=== PATIENT | male | born 1940 | race Caucasian/White ===

== ENCOUNTER → 2017-04-19 | Outpatient (CLI) | payer OTHER ==
--- NOTE | 2017-04-19 12:22 | DIAGNOSTIC IMAGING REPORT ---
RETROPERITONEAL COMPLETE CLINICAL HISTORY: 76 years-old Male presenting with RECURRENT UTI'S. TECHNIQUE: Real-time grayscale and limited color Doppler ultrasound imaging of the kidneys and bladder was performed. COMPARISON: 02/03/2015. FINDINGS: Right kidney: Normal echogenicity. Right kidney measures 12 cm. No hydronephrosis. No convincing evidence of calculus or mass. Normal perfusion. Left kidney: Normal echogenicity. Left kidney measures 11.7 cm. No hydronephrosis. 1.3 x 0.6 x 1.1 cm simple appearing cyst again noted. Dependent hyperechogenicity could suggest thin mural calcification or layering milk of calcium Normal perfusion. Bladder: Mildly thickened bladder wall, which is somewhat irregular. Bilateral ureteral jets present. Other: Hyperechogenicity of the liver suggest steatosis. IMPRESSION: 1. No obstruction. 2. Simple or minimally complex small left renal cyst. 3. Mildly thickened bladder wall, which is somewhat irregular. This could represent changes secondary to acute or chronic cystitis or represent chronic outlet obstruction. Correlate with urinalysis. 4. Possible hepatic steatosis. Electronically signed by: Rudi Vega M.D. 04/19/2017 12:20 PM Dictated Date/Time: 04/19/2017 12:18 PM
== END | disposition home or self-care (01) ==
LOC: C.ULTR 11:42
PROVIDERS: ATTEND Urology
DX: N39.0 Urinary tract infection, site not specified (principal); N28.1 Cyst of kidney, acquired

== ENCOUNTER → 2017-12-07 | Outpatient (CLI) | payer OTHER | END | disposition home or self-care (01) | LOC: C.LABSPEC 17:04 | PROVIDERS: ATTEND Urology | DX: R33.9 Retention of urine, unspecified (principal); R31.0 Gross hematuria ==

== ENCOUNTER 2019-11-20 05:58 | Inpatient (IN) ==
--- NOTE | 2019-11-05 16:43 | PAT Medication Instructions ---
Medication Instructions Date of Service November 05, 2019 Home Medications cetirizine 10 mg PO QPM dulaglutide [Trulicity] 1.5 mg SUBCUT WK glipizide 10 mg PO BID glucosamine sulfate 2KCl [Glucosamine Relief] 2,000 mg PO QPM lisinopril-hydrochlorothiazide 1 tab PO QAM metformin 1,000 mg PO BID [id number] [Juan C Multivitamin For Men] 1 tab PO QPM nitrofurantoin macrocrystal 100 mg PO QPM omega-3 fatty acids 500 mg PO QPM omeprazole 20 mg PO QPM simvastatin 40 mg PO PM Continue as directed dulaglutide [Trulicity] 1.5 mg SUBCUT WK STOP taking 2 weeks before surgery omega-3 fatty acids 500 mg PO QPM [id number] [Juan C Multivitamin For Men] 1 tab PO QPM glucosamine sulfate 2KCl [Glucosamine Relief] 2,000 mg PO QPM DO NOT take the morning of surgery metformin 1,000 mg PO BID lisinopril-hydrochlorothiazide 1 tab PO QAM glipizide 10 mg PO BID Take evening before surgery omeprazole 20 mg PO QPM simvastatin 40 mg PO PM nitrofurantoin macrocrystal 100 mg PO QPM metformin 1,000 mg PO BID glipizide 10 mg PO BID cetirizine 10 mg PO QPM OTHERWISE NOTHING TO EAT OR DRINK AFTER MIDNIGHT Other Notes If you have any questions please call us at [phone] or [phone] or [phone] or [phone]
--- NOTE | 2019-11-06 11:17 | Anesthesiology Consultation ---
Date of Service November 06, 2019 Assessment & Plan (1) Encounter for pre-operative examination: Chart Review Chart Review: Pending: Refer to Additional Notes / Consult section (PCP clearance and response re: murmur) and Patient seen in Pre Admission Testing Note written to PCP to address at PCP clearance re: heart murmur and carotid bruits vs murmur radiation and if recent ECHO/carotids done or if testing can be updated prior to surgery. Teaching & Discussion Pre-Anesthesia Teaching/Discussion Notes: Instructed NPO after midnight before surgery,except medications with 15 cc of water. Medication instructions provided according to the PAT guidelines. History Surgery Operation Date: 11/20/19 07:45 Proposed Procedures p L3-L5 Decompression Fusion, Spinal Cord Monitoring - Pedro Guerra, Height/Weight Height: 5 ft 6 in Weight: 98.1 kg Allergies Allergy/AdvReac Type Severity Reaction Status Date / Time ofloxacin [From Floxin] Allergy Unknown TROUBLE Verified 10/31/19 11:57 BREATHING pregabalin [From Lyrica] Allergy Unknown MUSCLE Verified 10/31/19 11:57 WEAKNESS Medications Home Medications Medication Instructions Recorded Confirmed Last Taken cetirizine 10 mg PO QPM 10/31/19 10/31/19 Unknown dulaglutide [Trulicity] 1.5 mg SUBCUT WK 10/31/19 10/31/19 Unknown glipizide 10 mg PO BID 10/31/19 10/31/19 Unknown glucosamine sulfate 2KCl 2,000 mg PO QPM 10/31/19 10/31/19 Unknown [Glucosamine Relief] lisinopril-hydrochlorothiazide 1 tab PO QAM 10/31/19 10/31/19 Unknown metformin 1,000 mg PO BID 10/31/19 10/31/19 Unknown [id number] 1 tab PO QPM 10/31/19 10/31/19 Unknown [Juan C Multivitamin For Men] nitrofurantoin macrocrystal 100 mg PO QPM 10/31/19 10/31/19 Unknown omega-3 fatty acids 500 mg PO QPM 10/31/19 10/31/19 Unknown omeprazole 20 mg PO QPM 10/31/19 10/31/19 Unknown simvastatin 40 mg PO PM 10/31/19 10/31/19 Unknown Past Medical History Medical History (Updated 11/06/19 @ 11:39 by Aubrie Baum PA-C) Cardiac murmur Chronic Chronic sinus complaints Diabetes mellitus, type 2 Well controlled and stable GERD (gastroesophageal reflux disease) Well controlled and stable Hearing deficit Hx: UTI (urinary tract infection) Recurrent UTI history- follows with urology- on prophylactic abx - no recent issues Hyperlipidemia Hypertension Neuropathy of both feet Prostate cancer Under observation Self-catheterizes urinary bladder D/T URINARY RETENTION Sleep apnea on CPAP q HS Exercise / Class Metabolic Activity II 4-5 Yardwork/Stairs/Walk up hill (one flight of stairs- no chest pain or SOB ) Past Family History Family History (Updated 10/31/19 @ 12:11 by Marina Wolf, CHIRAG) Mother Family history of diabetes mellitus Father Family history of diabetes mellitus Sister Family history of diabetes mellitus Past Surgical History Surgical History (Updated 10/31/19 @ 12:16 by Marina Wolf, CHIRAG) History of carpal tunnel release of both wrists History of prostate surgery Hx of colonoscopy Hx of hernia repair WITH HYDROCELECTOMY Past Anesthesia History No Hx of Anesthesia Complications and No Family Hx of Anesthesia Complications History of PONV No Hx of PONV and Hx of Motion Sickness Social History Smoking Status: Never smoker Do You Dip or Chew Tobacco: No Hx Alcohol Use: No Hx Substance Use: No substance use type: does not use Review of Systems Patient denies chest pain, shortness of breath, dyspnea on exertion, cough, wheezing, palpitations. No hx of seizures, stroke, SD. No hx of blood clots or blood transfusions Physical Exam Vital Signs VITALS BP 128/72 P 88 TEMP 98.5 SP02 96% RESP 16 Constitutional no acute distress ENMT Mouth: no TMJ clicking Thyromental Distance: > or= 3.5 Finger Breadths (3.5) Mallampati Class: II Bottom left molar missing Neck + short neck, + thick neck and + limited neck extension (moderately ) Respiratory normal respiratory effort; no respiratory distress Auscultation: lungs clear to auscultation bilaterally; no wheezes Cardiovascular Rate/Rhythm: regular rate and regular rhythm Heart Sounds: + murmur (III/ systolic murmur ) Vessels: + carotid bruit (bilateral bruit vs. cardiac murmur radiation ) Extremities: no edema Musculoskeletal Spine: + pain with cervical ROM (mild ) Neurologic moves all extremities Psychiatric Orientation: alert Testing Laboratory Results 11/06/19 11:29 11/06/19 11: PT 10.7 Seconds (9.0-12.0) 11/06/19 11: INR 1.0 (0.9-1.1) 11/06/19 11: APTT 25.9 Seconds (21.0-31.0) 11/06/19 11:29 Urine Color Dark Yellow 11/06/19 Unknown Urine Appearance Clear (Clear) 11/06/19 Unknown Urine pH 5.0 (4.5-7.5) 11/06/19 Unknown Ur Specific Hyden 1.020 (1.000-1.030) 11/06/19 Unknown Urine Protein Negative (Negative) 11/06/19 Unknown Urine Glucose (UA) Negative (Negative) 11/06/19 Unknown Urine Ketones Negative (Negative) 11/06/19 Unknown Urine Nitrite Negative (Negative) 11/06/19 Unknown Ur Leukocyte Esterase Negative (Negative) 11/06/19 Unknown Blood Type A Positive 11/06/19 11: Antibody Screen NEGATIVE 11/06/19 11:29 Electrocardiogram Date: 11/06/19 Findings: + NSR @ (63) Chest X-Ray Date: 11/06/19 Findings: + NAD and + cardiomegaly Atherosclerotic calcification of the thoracic aorta. . Scarring/atelectasis is noted at the lung bases
--- NOTE | 2019-11-06 12:03 | XRay Report ---
TWO VIEW CHEST CLINICAL HISTORY: Preoperative examination. FINDINGS: PA and lateral chest radiographs are obtained. No prior studies are available for compariso n at the time of dictation. The heart is enlarged noting atherosclerotic calcification of the thorac ic aorta. The pulmonary vasculature is noncongested. Scarring/atelectasis is noted at the lung bases. No airspace consolidation or pleural effusion is identified. There is no pneumothorax. The skeletal structures are osteopenic. The bony thorax appears intact. IMPRESSION: Cardiomegaly with no active disease in the chest. ACT 112: Negative or not required by law. Electronically signed by: Jerome Munoz M.D. 11/06/2019 12:02 PM
[2019-11-06 12:05] LABS: Basophils # (auto) 0.02 K/uL (0-0.2); Basophils % (auto) 0.3 %; Eosinophils # (auto) 0.12 K/uL (0-0.5); Eosinophils % (auto) 1.9 %; Hematocrit (blood only) 40.3 % (42-52); Hemoglobin 13.6 g/dL (14.0-18.0); Immature Granulocytes # (auto) 0.02 K/uL (0.00-0.02); Immature Granulocytes % (auto) 0.3 %; Lymphocytes # (auto) 2.07 K/uL (1.2-3.4); Lymphocytes % (auto) 32.8 %; Mean Corpuscular Hgb Conc 33.7 g/dL (32-36); Mean Corpuscular Volume 83.1 fL (80-100); Mean Platelet Volume 10.3 fL (7.4-10.4); Monocytes # (auto) 0.44 K/uL (0.11-0.59); Neutrophils # (auto) 3.65 K/uL (1.4-6.5); Neutrophils % (auto) 57.7 %; Platelet Count 183 K/uL (130-400); RDW Coefficient of Variation 14.4 % (11.5-14.5); RDW Standard Deviation 43.8 fL (36.4-46.3); Red Blood Count 4.85 M/uL (4.7-6.1); White Blood Count 6.32 K/uL (4.8-10.8)
[2019-11-06 12:10] LABS: Appearance Urine Clear (Clear); Bilirubin Urine Negative (Negative); Blood Urine Negative (Negative); Color Urine Dark Yellow; Glucose Urine UA Negative (Negative); Ketones Urine Negative (Negative); Leukocyte Esterase Urine Negative (Negative); Nitrite Urine Negative (Negative); Protein Urine Negative (Negative); Urobilinogen Urine Negative (Negative)
[2019-11-06 12:19] LABS: Partial Thromboplastin Ratio 0.9; Partial Thromboplastin Time 25.9 Seconds (21.0-31.0); Prothrombin Time 10.7 Seconds (9.0-12.0)
[2019-11-06 14:03] LABS: BUN Creatinine Ratio 17.6 (10-20); Calcium 9.9 mg/dl (8.5-10.1); Creatinine Clr Calc Pharmacy 53.4 ml/min; Est GFR (African American) 64.3; Est GFR (Non-African American) 55.5; Potassium 3.9 mmol/L (3.5-5.1)
--- NOTE | 2019-11-06 15:30 | Electrocardiogram Report ---
Test Reason : Blood Pressure : / mmHG Vent. Rate : 063 BPM Atrial Rate : 063 BPM P-R Int : 154 ms QRS Dur : 100 ms QT Int : 420 ms P-R-T Axes : 067 011 031 degrees QTc Int : 429 ms Normal sinus rhythm Normal ECG No previous ECGs available Confirmed by Que Ramos ([id number]) on 11/06/2019 3:30:22 PM Referred By: Pedro Guerra Confirmed By:Que Ramos
[~2019-11-20 05:58] MED LIST: SODIUM CHLORIDE 0.9% 250 ML IV PRN
[2019-11-20] MEDS ORDERED: LR 15ML/HR IV SCH (06:00)
[2019-11-20] MEDS ORDERED: ACETAMINOPHEN 500 MG TAB PO SCH (06:00)
[2019-11-20] MEDS ORDERED: CeleBREX 200 MG CAP PO SCH (06:00)
[2019-11-20] MEDS ORDERED: CEFAZOLIN 2000MG 2,000 MG/15 ML SYR IV SCH (06:00)
[2019-11-20] MEDS ORDERED: LR 500ML BOLUS IV SCH (06:00)
[2019-11-20] MEDS ORDERED: GABAPENTIN 300 MG CAP PO SCH (06:00)
[2019-11-20] MEDS ORDERED: ROCURONIUM BROMIDE 10 MG/ML 5 ML VIAL ONE (06:49)
[2019-11-20] MEDS ORDERED: HYDROmorphone INJ 2 MG/ML SYR/VIAL ONE (06:49)
[2019-11-20] MEDS ORDERED: ePHEDrine sulfate 50 MG/ML AMP ONE (06:49)
[2019-11-20] MEDS ORDERED: PROPOFOL IV EMULSION 10 MG/ML 20 ML VIAL IV ONE ×3 (06:49→08:12)
[2019-11-20] MEDS ORDERED: ONDANSETRON INJ 2 MG/ML 2 ML VIAL ONE (06:49)
[2019-11-20] MEDS ORDERED: NEOSTIGMINE METHYLSULFATE 5 MG/5 ML SYR ONE (06:49)
[2019-11-20] MEDS ORDERED: GLYCOPYRROLATE 0.2 MG/ML VIAL ONE (06:49)
[2019-11-20] MEDS ORDERED: LIDOCAINE HCL 2% 2 ML VIAL/AMP(20MG/ML) INFIL ONE (06:49)
[2019-11-20] MEDS ORDERED: BACITRACIN INJ 50,000 UNIT VIAL ONE (06:58)
[2019-11-20] MEDS ORDERED: BUPIVACAINE/EPINEPHRINE 0.5% MPF 1:200,000 10 ML VIAL ONE (06:58)
--- NOTE | 2019-11-20 07:40 | History & Physical Bridge Note ---
Date of Service November 20, 2019 History & Physical Bridge Note I have examined the patient, reviewed the History & Physical and in the interval since the performance of the History & Physical I have noted the following changes of clinical significance: no changes noted
--- NOTE | 2019-11-20 07:41 | History & Physical Report ---
Date of Service November 20, 2019 Assessment & Plan (1) Neurogenic claudication due to lumbar spinal stenosis: L3-L5 decompression fusion Present on Admission?: Yes History of Present Illness Chief Complaint: Back and bilateral leg pain Primary Care Provider: Aura Cowan MD This is a 79-year-old male who presents with worsening back and bilateral leg pain and weakness. He has had marked decline in ability to ambulate is here for surgical intervention. Allergies Allergy/AdvReac Type Severity Reaction Status Date / Time ofloxacin [From Floxin] Allergy Severe TROUBLE Verified 11/20/19 06:46 BREATHING pregabalin [From Lyrica] AdvReac Intermediate MUSCLE Verified 11/20/19 06:46 WEAKNESS Home Medications Home Medications Medication Instructions Recorded Confirmed Type cetirizine 10 mg PO QPM 10/31/19 11/20/19 History dulaglutide [Trulicity] 1.5 mg SUBCUT WK 10/31/19 11/20/19 History glipizide 10 mg PO BID 10/31/19 11/20/19 History glucosamine sulfate 2KCl 2,000 mg PO QPM 10/31/19 11/20/19 History [Glucosamine Relief] lisinopril-hydrochlorothiazide 1 tab PO QAM 10/31/19 11/20/19 History metformin 1,000 mg PO BID 10/31/19 11/20/19 History [id number] 1 tab PO QPM 10/31/19 11/20/19 History [Juan C Multivitamin For Men] nitrofurantoin macrocrystal 100 mg PO QPM 10/31/19 11/20/19 History omega-3 fatty acids 500 mg PO QPM 10/31/19 11/20/19 History omeprazole 20 mg PO QPM 10/31/19 11/20/19 History simvastatin 40 mg PO PM 10/31/19 11/20/19 History celecoxib 100 mg PO BID 11/07/19 11/20/19 History Past Med/Surg History Family History (Updated 10/31/19 @ 12:11 by Marina Wolf RN) Mother Family history of diabetes mellitus Father Family history of diabetes mellitus Sister Family history of diabetes mellitus Social History Preferred Language: Montenegrin Communication Ability: Effective Beliefs That Will Affect Care: None Current Living Situation: Alone Feels Safe at Home: Yes Safety Concerns: Feels Safe At This Time Smoking Status: Never smoker Do You Dip or Chew Tobacco: No ; Second Hand Exposure: Yes ( CHILD) ; Hx Alcohol Use: No Hx Substance Use: No Physical Exam Physical Exam: Patient is alert and oriented neurologically intact. Results & Data Vital Signs (Past 12 Hours) Vital Signs Temp Pulse Resp BP Pulse Ox 11/20/19 06:22 37 C 67 20 164/86 H 95
[2019-11-20] MEDS ORDERED: FLOSEAL HEMOSTATIC MATRIX 10ML TOP ONE (08:23)
[2019-11-20] MEDS ORDERED: DEXAMETHASONE SOD INJ 4 MG/ML VIAL ONE (08:58)
--- NOTE | 2019-11-20 09:49 | Operative Report ---
Post Operative Report Pre & Post Diagnosis Operation Date: 11/20/19 07:45 Pre-Op Diagnosis: LUMBAR SPINAL STENOSIS WITH NEUROGENIC CLAUDICATION Post-Op Diagnosis: LUMBAR SPINAL STENOSIS WITH NEUROGENIC CLAUDICATION I identified the patient and participated in the time-out.: Yes Procedure Operation Date: 11/20/19 07:45 Actual Procedures #1 lumbar decompression with bilateral medial facetectomies and foraminotomies L3-4 and L4-5. #2 posterior spinal fusion L3-4 and L4-5. #3 placement posterior instrumentation L3-4 L4-5. #4 placement locally harvested morselized autograft in the posterior lateral gutters. #5 placement infuse collagen sponge, master graft in the posterior gutters. Surgeon Pedro Guerra, Flight Controls Engineer Tamika Wang Estimated Blood Loss 100 Findings See Below Patient is 5 foot 6 inches tall weighing 98 kg with a BMI in excess of 34. The patient's body habitus did create significant technical difficulty both in patient positioning exposure and the performance of the surgical procedure. This added at least 25% increase to the operative time. Specimens None Indications This is a 79-year-old male who presents with marked decline in status secondary to severe spinal stenosis elected to undergo the above-mentioned procedure. Description of Procedure Patient was met with identified informed consent obtained. Patient was then taken to the operative suite underwent intubation placed in a prone position the Juan Daniel table on top of the Sami frame. All bony prominences well-padded eyes inspected to ensure no external pressure placed upon them. This point the lumbar spine was prepped and draped in normal sterile fashion. Sharp dissection with the assistance pericardial performed to and exposing the lamina and transverse processes of L3-L4-L5 bilaterally. From caudal cephalad fashion complete laminectomy of L4 and L3 was performed including bilateral medial facetectomies and foraminotomies addressing severe spinal stenosis as well as resection of bilateral facet cysts at the 4 5 level bilaterally. After complete decompression pedicle screws were placed in L3-L4-L5 bilaterally with assistance of fluoroscopy and the appropriately sized mouna locked into position. This included a cross-link locked in position. Transverse processes of L3-L4-L5 bur to subcortical bleeding bone. Infuse collagen sponge master graft local autograft was placed in the posterior gutters. 15 round OSMAR drain inserted. Incision was closed with 1 Vicryl the fascia 2-0 Vicryl subcutaneously and 4 Monocryl for final skin closure. Steri-Strip sterile dressings placed. Patient will continue PACU stable condition. Please note Tamika Wang was present at the entire procedure involved the patient positioning complex portions of the surgery and final skin closure. Lastly spinal cord monitoring was utilized that the procedure no changes noted. I attest to the content of the Intraoperative Record and any orders documented therein. Any exceptions are noted below.
--- NOTE | 2019-11-20 10:34 | Fluoroscopy Report ---
LUMBAR SPINE, INTRAOPERATIVE FLUOROSCOPY HISTORY: L3 L5 decompression and fusion. FLUOROSCOPY TIME: 20 seconds. FINDINGS: Intraoperative fluoroscopy was provided for the lumbar spine. 2 fluoroscopic spot images we re obtained. Posterior decompression and fusion from L3 through L5 with pedicle screws and rods. The hardware is intact. IMPRESSION: Fluoroscopy provided for a L3-L5 posterior decompression and fusion. ACT 112: Negative or not required by law. Electronically signed by: Dylan Tse M.D. 11/20/2019 10:33 AM
[2019-11-20] MEDS ORDERED: ALUMINUM/MAGNESIUM SUSP 30 ML UDC PO PRN (11:23)
[2019-11-20] MEDS ORDERED: ACETAMINOPHEN 500 MG TAB PO PRN (11:23)
[2019-11-20] MEDS ORDERED: LORazepam 0.5 MG TAB PO PRN (11:23)
[2019-11-20] MEDS ORDERED: ACETAMINOPHEN 1,000 MG/100 ML VIAL IV PRN (11:23)
[2019-11-20] MEDS ORDERED: FAMOTIDINE 20 MG TAB PO PRN (11:23)
[2019-11-20] MEDS ORDERED: METOCLOPRAMIDE HCL INJ 5 MG/ML 2 ML VIAL IV PRN (11:23)
[2019-11-20] MEDS ORDERED: PROMETHAZINE HCL 12.5 MG in SODIUM CHLORIDE 0.9% 50 ML IV PRN (11:23)
[2019-11-20] MEDS ORDERED: LORazepam 0.5 MG/1 ML VIAL IV PRN (11:23)
[2019-11-20] MEDS ORDERED: ONDANSETRON INJ 2 MG/ML 2 ML VIAL IV PRN (11:23)
[2019-11-20] MEDS ORDERED: SOD PHOSPHATE/SOD BIPHOSPHATE ENEMA 132 ML BTL PR PRN (11:23)
[2019-11-20] MEDS ORDERED: ONDANSETRON 4 MG OD TAB PO PRN (11:23)
[2019-11-20] MEDS ORDERED: bisacodyL 10 MG SUPP PR PRN (11:23)
[2019-11-20] MEDS ORDERED: HYDROmorphone INJ 1 MG/ML SYRINGE IV PRN (11:23)
[2019-11-20] MEDS ORDERED: DO NOT ADMINISTER PNEUMOCOCCAL VACCINE PRN (11:23)
[2019-11-20] MEDS ORDERED: NALOXONE HCL 0.4 MG/1 ML VIAL/CARP IV PRN (11:23)
[2019-11-20] MEDS ORDERED: HYDROmorphone INJ 0.5 MG/0.5 ML SYR IV PRN (11:23)
[2019-11-20] MEDS ORDERED: DO NOT ADMINISTER FLU VACCINE PRN (11:23)
[2019-11-20] MEDS ORDERED: OXYCODONE HCL IR 5 MG TAB (IMMEDIATE RELEASE) PO PRN (11:23)
--- NOTE | 2019-11-20 12:07 | Hospitalist Consultation ---
Date of Consultation November 20, 2019 Assessment & Plan (1) Neurogenic claudication due to lumbar spinal stenosis: - POD#0 L3-L5 decompression and fusion by Dr. Guerra - activity and wound care orders as per ortho - pain control with bowel regimen - PT/OT - monitor H/H for acute blood loss anemia and transfuse blood products PRN - EBL 100 cc (2) Diabetes mellitus, type 2: -Unknown HgbA1c, will check with morning labs -Hold oral agents and Trulicity and utilize Lantus and NovoLog per protocol while hospitalized (3) Hypertension: -BP controlled, continue lisinopril/HCTZ (4) Moderate aortic stenosis: -Noted on recent echo -Monitor volume status closely (5) GERD (gastroesophageal reflux disease): -Continue PPI (6) Hyperlipidemia: -Continue statin (7) Self-catheterizes urinary bladder: -House catheter currently in place postoperatively -On chronic Macrobid for UTI suppression, continue (8) Sleep apnea: -Home CPAP (9) DVT prophylaxis: -Teds/SCDs as per spine orthopedics Thank you for this consultation. We will follow the patient with you during their hospital stay. You can reach a member of the [facility] Hospitalist Team 21/03 via pager @ [phone]. Supervising Physician Co-Signing Physician Notes HISTORY: Record reviewed. Patient interviewed and examined. Care coordinated with DIANA John. Please refer to her documentation for complete history. Briefly, 79-year-old male with history of hypertension, sleep apnea, diabetes mellitus, chronic urinary retention, and other problems. S/P lumbar decompression/fusion. Doing well postop. No CP, SOB, nausea, vomiting. EXAM: General- no distress Lungs- clear to auscultation; no respiratory distress Cardiovascular- RRR; II/ systolic murmur at base; no gallop; no JVD; no pretibial edema Abdomen- + bowel sounds, soft, nontender - House cath Extremities- no cyanosis; no calf tenderness; TEDS and SCDs applied Neuro- alert, oriented Skin- warm & dry DATA: Laboratory Results - last 24 hr 11/20/19 11/20/19 11/20/19 06:40 06:40 10:15 POC Glucose 137 H 160 H Blood Type A Positive Antibody Screen NEGATIVE Crossmatch See Detail 03/11/20/19 11/20/19 11:52 17:06 20:04 POC Glucose 221 H 175 H 264 H Blood Type Antibody Screen Crossmatch Other lab studies as noted. Chest x-ray reviewed and demonstrated []. EKG performed 11/06/19 reviewed and demonstrated NSR at 63 / minute, no acute ch anges. Echo performed 11/15/19 showed moderate , normal LVEF. ASSESSMENT AND PLAN: S/P LUMBAR DECOMPRESSION / FUSION Doing well postop. HYPERTENSION Continue lisinopril & HCTZ. SLEEP APNEA Continue CPAP or BiPAP. DM TYPE 2 Hold home meds. Lantus / NovoLog per protocol. CHRONIC URINARY RETENTION Straight caths TID after House removed. Please refer to DUNIA Gay's documentation for discussion of other issues. Thank you for this consultation. We will follow the patient with you during their hospital stay. My cell # is [phone]. You can reach a member of the [facility] Medicine Team 21/03 via pager @ [phone]. History of Present Illness Reason for Consultation: Post Op Medical Management Requesting Physician: Dr. Guerra Attending Physician: Dr. Mcadams History of Present Illness 79-year-old male who is status post L3-L5 decompression and fusion today by Dr. Guerra. Postoperatively, patient is doing well. He reports that before his surgery, both of his feet were numb all the time. He reports increased feeling in both of his feet at this time. Patient reports his pain is well controlled. No chest pain or shortness of breath. Is somewhat lethargic however arouses easily to verbal stimuli. Has some mild dizziness but denies feeling lightheaded or any syncopal event. No abdominal pain or nausea. House catheter is in place draining clear yellow urine. Allergies Allergy/AdvReac Type Severity Reaction Status Date / Time ofloxacin [From Floxin] Allergy Severe TROUBLE Verified 11/20/19 06:46 BREATHING pregabalin [From Lyrica] AdvReac Intermediate MUSCLE Verified 11/20/19 06:46 WEAKNESS Home Medications Home Medications Medication Instructions Recorded Confirmed Type cetirizine 10 mg PO QPM 10/31/19 11/20/19 History dulaglutide [Trulicity] 1.5 mg SUBCUT WK 10/31/19 11/20/19 History glipizide 10 mg PO BID 10/31/19 11/20/19 History glucosamine sulfate 2KCl 2,000 mg PO QPM 10/31/19 11/20/19 History [Glucosamine Relief] lisinopril-hydrochlorothiazide 1 tab PO QAM 10/31/19 11/20/19 History metformin 1,000 mg PO BID 10/31/19 11/20/19 History [id number] 1 tab PO QPM 10/31/19 11/20/19 History [Juan C Multivitamin For Men] nitrofurantoin macrocrystal 100 mg PO QPM 10/31/19 11/20/19 History omega-3 fatty acids 500 mg PO QPM 10/31/19 11/20/19 History omeprazole 20 mg PO QPM 10/31/19 11/20/19 History simvastatin 40 mg PO PM 10/31/19 11/20/19 History celecoxib 100 mg PO BID 11/07/19 11/20/19 History Patient History Medical History Cardiac murmur Chronic Chronic sinus complaints Diabetes mellitus, type 2 Well controlled and stable GERD (gastroesophageal reflux disease) Well controlled and stable Hearing deficit Hx: UTI (urinary tract infection) Recurrent UTI history- follows with urology- on prophylactic abx - no recent issues Hyperlipidemia Hypertension Moderate aortic stenosis Neuropathy of both feet Prostate cancer Under observation Self-catheterizes urinary bladder D/T URINARY RETENTION Sleep apnea on CPAP q HS Surgical History History of carpal tunnel release of both wrists History of prostate surgery Hx of colonoscopy Hx of hernia repair WITH HYDROCELECTOMY Family History Mother Family history of diabetes mellitus Father Family history of diabetes mellitus Sister Family history of diabetes mellitus Social History Preferred Language: Pry[place]in[place] Communication Ability: Effective Beliefs That Will Affect Care: None Current Living Situation: Alone Feels Safe at Home: Yes Safety Concerns: Feels Safe At This Time Smoking Status: Never smoker Do You Dip or Chew Tobacco: No ; Second Hand Exposure: Yes ( CHILD) ; Hx Alcohol Use: No Hx Substance Use: No Review of Systems Review of Systems: ROS per HPI, all other systems reviewed and negative Physical Exam Constitutional: WD/WN, vitals as above Eyes: PERRL, conjunctivae normal, anicteric sclerae ENMT: external ear and nose normal, oropharynx normal Respiratory: normal respiratory effort, lungs clear to auscultation Cardiovascular: Rate/Rhythm: regular rate and regular rhythm Heart Sounds: + murmur (systolic, grade III/) Vessels: normal peripheral pulses Extremities: + edema Gastrointestinal (Abdomen): normal bowel sounds, soft, nontender, no hepatosplenomegaly Musculoskeletal: s/p back surgery, pedal pushes and pulls strong bilaterally, drain in place draining bloody drainage Neurologic: PERRL, EOMI, accommodation nl, no face palsy, no dysarthria Psychiatric: Orientation: oriented x 3; + not alert (Somewhat lethargic however arouses easily to verbal stimuli) Genitourinary: House in place draining clear yellow urine Results & Data ([facility]) Vital Signs (Past 12 Hours) Vital Signs Temp Pulse Pulse Resp BP Pulse Ox 11/20/19 11:49 69 14 137/81 97 11/20/19 11:13 36.8 C 68 14 147/83 H 99 11/20/19 10:50 37.0 C 70 18 148/83 H 94 11/20/19 10:40 37.0 C 66 14 148/84 H 96 11/20/19 10:30 63 16 148/72 H 96 11/20/19 10:20 79 16 154/67 H 100 11/20/19 10:12 36.6 C 76 15 150/78 H 98 11/20/19 06:22 37 C 67 20 164/86 H 95
[2019-11-20] MEDS: SODIUM CHLORIDE 0.9% 1000ML 1,000 ML IV SCH ×2 (12:22→21:51)
[2019-11-20] MEDS ORDERED: ePHEDrine sulfate 50 MG/ML AMP IV PRN (12:31)
[2019-11-20] MEDS ORDERED: ATROPINE SULFATE 0.1 MG/ML 10ML SYR IV PRN (12:31)
--- NOTE | 2019-11-20 12:31 | Anesthesiology Progress Note ---
Date of Service November 20, 2019 Anesthesia Post Procedure Vital Signs Vital Signs: Temp Pulse Pulse Resp BP BP Pulse Ox 11/20/19 12:17 36.4 C L 61 18 129/79 99 11/20/19 11:49 69 14 137/81 97 11/20/19 11:13 36.8 C 68 14 147/83 H 99 11/20/19 10:50 37.0 C 70 18 148/83 H 94 11/20/19 10:40 37.0 C 66 14 148/84 H 96 11/20/19 10:30 63 16 148/72 H 96 11/20/19 10:20 79 16 154/67 H 100 11/20/19 10:12 36.6 C 76 15 150/78 H 98 11/20/19 06:22 37 C 67 20 164/86 H 95 Pain Intensity Left Leg: Pain Intensity: 2 Transfer of Care Handoff Completed per policy Notes Mental Status: alert / awake / arousable Patient Amnestic to Procedure: Yes Nausea / Vomiting: adequately controlled Pain: adequately controlled Airway Patency, RR, SpO2: stable & adequate BP & HR: stable & adequate Hydration State: stable & adequate Anesthetic Complications: no major complications apparent
[2019-11-20] MEDS ORDERED: GLUCAGON FOR INJ 1 MG VIAL SQ PRN (12:52)
[2019-11-20] MEDS ORDERED: DEXTROSE 50% 50 ML SYRINGE IV PRN (12:52)
[2019-11-20] MEDS ORDERED: CARBOHYDRATES FOR HYPOGLYCEMIA PO PRN (12:52)
[2019-11-20] MEDS ORDERED: INSULIN GLARGINE SOLOSTAR 100 UNITS/ML 3 ML PEN SC ONE (12:52)
[2019-11-20] MEDS ORDERED: GLUCOSE 10 TABS/TUBE PO PRN (12:52)
[2019-11-20] MEDS ORDERED: GLUCOSE 40% GEL 15 GM TUBE PO PRN (12:52)
[2019-11-20] MEDS ORDERED: glipiZIDE 5 MG TAB PO SCH (17:00)
[2019-11-20] MEDS: CEFAZOLIN 2000MG 2,000 MG/15 ML SYR IV SCH (17:19)
[2019-11-20] MEDS: INSULIN ASPART 100 UNITS/ML 3 ML PEN SC SCH ×2 (17:52→20:21)
[2019-11-20] MEDS: PANTOprazole 40 MG TAB PO SCH (20:16)
[2019-11-20] MEDS: SIMVASTATIN 40 MG TAB PO SCH (20:16)
[2019-11-20] MEDS: DOCUSATE SODIUM/SENNA 50/8.6MG TAB PO SCH (20:16)
[2019-11-20] MEDS: CETIRIZINE HCL 10 MG TABLET PO SCH (20:17)
[2019-11-20] MEDS: INSULIN GLARGINE SOLOSTAR 100 UNITS/ML 3 ML PEN SC SCH (20:20)
[2019-11-20] MEDS: CEROVITE ADV FORMULA TAB PO SCH (21:51)
[2019-11-21] MEDS: CEFAZOLIN 2000MG 2,000 MG/15 ML SYR IV SCH
[2019-11-21] MEDS ORDERED: COUGH DROP (SUGAR FREE) LOZ 24 LOZ/1 BOX BUCCAL STA (00:05)
[2019-11-21] MEDS ORDERED: COUGH DROP (SUGAR FREE) LOZ 24 LOZ/1 BOX BUCCAL ONE (00:09)
[2019-11-21] MEDS: TRAMADOL HCL 50 MG TABLET PO PRN ×2 (02:36→17:58)
[2019-11-21] MEDS: POLYETHYLENE (MIRALAX) 17 GM PACK PO SCH ×4 (05:30→23:27)
[2019-11-21 05:43] LABS: Basophils # (auto) 0.01 K/uL (0-0.2); Basophils % (auto) 0.1 %; Eosinophils # (auto) 0.02 K/uL (0-0.5); Eosinophils % (auto) 0.2 %; Hematocrit (blood only) 37.6 % (42-52); Hemoglobin 12.5 g/dL (14.0-18.0); Immature Granulocytes # (auto) 0.01 K/uL (0.00-0.02); Immature Granulocytes % (auto) 0.1 %; Lymphocytes # (auto) 1.39 K/uL (1.2-3.4); Lymphocytes % (auto) 13.3 %; Mean Corpuscular Hemoglobin 27.2 pg (25-34); Mean Corpuscular Hgb Conc 33.2 g/dL (32-36); Mean Corpuscular Volume 81.9 fL (80-100); Monocytes % (auto) 7.7 %; Neutrophils # (auto) 8.22 K/uL (1.4-6.5); Neutrophils % (auto) 78.6 %; Platelet Count 177 K/uL (130-400); RDW Coefficient of Variation 14.2 % (11.5-14.5); RDW Standard Deviation 42.1 fL (36.4-46.3); Red Blood Count 4.59 M/uL (4.7-6.1); White Blood Count 10.45 K/uL (4.8-10.8)
[2019-11-21 06:09] LABS: BUN Creatinine Ratio 14.5 (10-20); Calcium 9.2 mg/dl (8.5-10.1); Creatinine Clr Calc Pharmacy 52.5 ml/min; Est GFR (African American) 63.1; Est GFR (Non-African American) 54.4
[2019-11-21 06:14] LABS: Estimated Average Glucose 183 mg/dl
[2019-11-21] MEDS: LISINOPRIL/HCTZ 20/25MG 1 TAB PO SCH (09:02)
[2019-11-21] MEDS: INSULIN GLARGINE SOLOSTAR 100 UNITS/ML 3 ML PEN SC SCH ×2 (09:03→21:07)
[2019-11-21] MEDS: INSULIN ASPART 100 UNITS/ML 3 ML PEN SC SCH ×4 (09:04→21:08)
--- NOTE | 2019-11-21 11:58 | Orthopedic Progress Note ---
Date of Service November 21, 2019 Assessment & Plan (1) Neurogenic claudication due to lumbar spinal stenosis: This time we will continue physical therapy monitor his OSMAR output anticipate discharge home in the next few days. Present on Admission?: Yes Admission and Anticipated Discharge Date Admission Date: November 20, 2019 Subjective Back pain is controlled leg symptoms markedly improved. Physical Exam Physical Exam: Patient is good strength testing is standing and ambulating without difficulty. Results & Data ([facility]) Vital Signs (Past 12 Hours) Vital Signs Temp Pulse Resp BP BP Pulse Ox 11/21/19 07:15 37.3 C 71 18 122/71 95 11/21/19 02:42 36.8 C 77 16 125/64 98
--- NOTE | 2019-11-21 17:16 | Hospitalist Progress Note ---
Date of Service November 21, 2019 Assessment & Plan (1) Neurogenic claudication due to lumbar spinal stenosis: S/P day#1 for L3-L5 decompression and fusion performed by Dr. Guerra No post op complication Continue pain control Continue PT/OT Continue Incentive spirometry Monitor H/H (2) Diabetes mellitus, type 2: HgbA1c 8 on 04/22/20 Continue to hold oral agents and Trulicity and utilize Lantus and NovoLog per protocol while hospitalized Continue monitor BS (3) Fever: Possible related to post op Temp was 38.1 Received Tylenol PRN If fever persist, consider to check UA and blood cx Continue monitor (4) Hypertension: BP controlled continue lisinopril/HCTZ (5) Moderate aortic stenosis: Noted on recent echo Stable (6) GERD (gastroesophageal reflux disease): Continue PPI (7) Hyperlipidemia: Continue statin (8) Self-catheterizes urinary bladder: House catheter currently in place postoperatively On chronic Macrobid for UTI suppression, continue (9) Sleep apnea: Home CPAP (10) DVT prophylaxis: Teds/SCDs as per spine orthopedics Thank you for this consultation. We will follow the patient with you during their hospital stay. You can [facility] a [facility] via pager @ [phone]. Admission and Anticipated Discharge Date Admission Date: November 20, 2019 Subjective Pt was seen and examined Sitting in chair with no distress Pt said that he walked around early today and was doing fine Pt said now he is having pain in his back Pt also was febrile today He said that he feels weak today Denies any chest pain, palpitation, dizziness and SOB Physical Exam Physical Exam: General- No acute distress Head- atraumatic Eyes- PERRL, EOMI, ENT- oropharynx clear Neck- supple, no JVD Lungs- clear to auscultation Heart- regular rhythm; +systolic murmur Abdomen- normal bowel sounds, soft, nontender Extremities- no calf tenderness Neuro- alert, oriented x 3; PERRL, EOMI; no facial palsy; no dysarthria Skin- warm & dry Results & Data Results & Data ([facility]) Vital Signs (Past 12 Hours) Vital Signs Temp Pulse Resp BP Pulse Ox 11/21/19 16:56 37.7 C H 11/21/19 15:12 38.1 C H 76 16 120/68 97 11/21/19 13:52 37.8 C H 11/21/19 13:06 38.9 C H 89 18 125/68 94 11/21/19 07:15 37.3 C 71 18 122/71 95
[2019-11-21] MEDS: PANTOprazole 40 MG TAB PO SCH (20:59)
[2019-11-21] MEDS: CETIRIZINE HCL 10 MG TABLET PO SCH (20:59)
[2019-11-21] MEDS: DOCUSATE SODIUM/SENNA 50/8.6MG TAB PO SCH (20:59)
[2019-11-21] MEDS: SIMVASTATIN 40 MG TAB PO SCH (20:59)
[2019-11-21] MEDS: CEROVITE ADV FORMULA TAB PO SCH (20:59)
[2019-11-22] MEDS: TRAMADOL HCL 50 MG TABLET PO PRN ×2 (00:26→08:07)
[2019-11-22 05:28] LABS: Hematocrit (blood only) 35.6 % (42-52); Hemoglobin 11.8 g/dL (14.0-18.0); Mean Corpuscular Hemoglobin 27.3 pg (25-34); Mean Corpuscular Hgb Conc 33.1 g/dL (32-36); Mean Corpuscular Volume 82.2 fL (80-100); Mean Platelet Volume 9.9 fL (7.4-10.4); Platelet Count 173 K/uL (130-400); RDW Coefficient of Variation 14.3 % (11.5-14.5); RDW Standard Deviation 43.2 fL (36.4-46.3); Red Blood Count 4.33 M/uL (4.7-6.1); White Blood Count 10.93 K/uL (4.8-10.8)
[2019-11-22] MEDS: POLYETHYLENE (MIRALAX) 17 GM PACK PO SCH ×4 (05:42→23:17)
[2019-11-22] MEDS: INSULIN ASPART 100 UNITS/ML 3 ML PEN SC SCH ×4 (08:52→21:07)
[2019-11-22] MEDS: LISINOPRIL/HCTZ 20/25MG 1 TAB PO SCH (08:52)
[2019-11-22] MEDS: INSULIN GLARGINE SOLOSTAR 100 UNITS/ML 3 ML PEN SC SCH ×2 (08:56→21:12)
--- NOTE | 2019-11-22 09:06 | Orthopedic Progress Note ---
Date of Service November 22, 2019 Assessment & Plan (1) Neurogenic claudication due to lumbar spinal stenosis: At this time we will continue physical therapy monitor his OSMAR output anticipate discharge home tomorrow with home health. Present on Admission?: Yes Admission and Anticipated Discharge Date Admission Date: November 20, 2019 Subjective Patient's back pain is a little bit more limiting today. Nevertheless his leg symptoms are markedly improved. Physical Exam Physical Exam: Patient is sitting at the chair at the bedside. Is excellent strength testing. Appears comfortable. Results & Data ([facility]) Vital Signs (Past 12 Hours) Vital Signs Temp Pulse Resp BP BP Pulse Ox 11/22/19 08:11 37.1 C 11/22/19 07:30 38.6 C H 86 18 133/70 93 11/21/19 23:15 37.8 C H 11/21/19 23:05 38.4 C H 77 20 109/65 94
--- NOTE | 2019-11-22 15:58 | Hospitalist Progress Note ---
Date of Service November 22, 2019 Assessment & Plan (1) Neurogenic claudication due to lumbar spinal stenosis: S/P day#2 for L3-L5 decompression and fusion performed by Dr. Guerra No post op complication Continue pain control Continue PT/OT Continue Incentive spirometry Monitor H/H (2) Diabetes mellitus, type 2: HgbA1c 8 on 04/22/20 Continue to hold oral agents and Trulicity and utilize Lantus and NovoLog per protocol while hospitalized Continue monitor BS (3) Fever: Possible related to post op Temp was 37.8 currently WBC 10.9 today Received Tylenol PRN If fever persist or WBC elevates, will consider to check UA and blood cx Continue monitor (4) Hypertension: BP controlled continue lisinopril/HCTZ (5) Moderate aortic stenosis: Noted on recent echo Stable (6) GERD (gastroesophageal reflux disease): Continue PPI (7) Hyperlipidemia: Continue statin (8) Self-catheterizes urinary bladder: House catheter currently in place postoperatively On chronic Macrobid for UTI suppression, continue (9) Sleep apnea: Home CPAP (10) DVT prophylaxis: Teds/SCDs as per spine orthopedics Thank you for this consultation. We will follow the patient with you during their hospital stay. You can reach a member of the [facility] Hospitalist Team 21/03 via pager @ [phone]. Admission and Anticipated Discharge Date Admission Date: November 20, 2019 Subjective Pt was seen and examined Lying in bed with no distress Pt said he feels much better today He said that he slept very well Currently no fever He said that he does not have any pain Physical Exam Physical Exam: General- No acute distress Head- atraumatic Eyes- PERRL, EOMI, ENT- oropharynx clear Neck- supple, no JVD Lungs- clear to auscultation Heart- regular rhythm; +systolic murmur Abdomen- normal bowel sounds, soft, nontender Extremities- no calf tenderness Neuro- alert, oriented x 3; PERRL, EOMI; no facial palsy; no dysarthria Skin- warm & dry Results & Data Results & Data ([facility]) Vital Signs (Past 12 Hours) Vital Signs Temp Pulse Resp BP BP Pulse Ox 11/22/19 15:17 37.8 C H 79 18 113/72 92 11/22/19 08:11 37.1 C 11/22/19 07:30 38.6 C H 86 18 133/70 93
[2019-11-22] MEDS: CEROVITE ADV FORMULA TAB PO SCH (21:00)
[2019-11-22] MEDS: CETIRIZINE HCL 10 MG TABLET PO SCH (21:00)
[2019-11-22] MEDS: PANTOprazole 40 MG TAB PO SCH (21:00)
[2019-11-22] MEDS: DOCUSATE SODIUM/SENNA 50/8.6MG TAB PO SCH (21:00)
[2019-11-22] MEDS: SIMVASTATIN 40 MG TAB PO SCH (21:01)
[2019-11-22] MEDS: MAGNESIUM HYDROXIDE SUSP 30 ML UDC PO PRN (21:14)
[2019-11-23] MEDS: POLYETHYLENE (MIRALAX) 17 GM PACK PO SCH ×3 (05:28→17:27)
[2019-11-23 05:41] LABS: Hematocrit (blood only) 34.5 % (42-52); Hemoglobin 11.7 g/dL (14.0-18.0); Mean Corpuscular Hemoglobin 28.4 pg (25-34); Mean Corpuscular Hgb Conc 33.9 g/dL (32-36); Mean Corpuscular Volume 83.7 fL (80-100); Mean Platelet Volume 10.3 fL (7.4-10.4); Platelet Count 183 K/uL (130-400); RDW Coefficient of Variation 14.2 % (11.5-14.5); RDW Standard Deviation 43.5 fL (36.4-46.3); Red Blood Count 4.12 M/uL (4.7-6.1); White Blood Count 11.29 K/uL (4.8-10.8)
[2019-11-23] MEDS: TRAMADOL HCL 50 MG TABLET PO PRN (07:30)
--- NOTE | 2019-11-23 07:48 | Orthopedic Progress Note ---
Date of Service November 23, 2019 Assessment & Plan (1) Neurogenic claudication due to lumbar spinal stenosis: Today we will continue physical therapy discontinue his drain anticipate discharge tomorrow with home health. Present on Admission?: Yes Admission and Anticipated Discharge Date Admission Date: November 20, 2019 Subjective Back pain controlled leg symptoms improved. Physical Exam Physical Exam: On exam he is in the chair at the bedside is good strength testing. Results & Data ([facility]) Vital Signs (Past 12 Hours) Vital Signs Temp Pulse Resp BP Pulse Ox 11/23/19 07:31 37.2 C 82 18 113/71 94 11/22/19 23:30 37.9 C H 11/22/19 23:05 37.5 C 11/22/19 23:01 37.6 C H 11/22/19 22:52 38.3 C H 78 18 123/71 90 11/22/19 19:54 37.6 C H
[2019-11-23] MEDS ORDERED: DEXAMETHASONE SOD PHOSPHATE 8 MG in SYRINGE 0 ML IV ONE (08:00)
[2019-11-23] MEDS: LISINOPRIL/HCTZ 20/25MG 1 TAB PO SCH (09:21)
[2019-11-23] MEDS: INSULIN GLARGINE SOLOSTAR 100 UNITS/ML 3 ML PEN SC SCH ×2 (09:22→20:52)
[2019-11-23] MEDS: INSULIN ASPART 100 UNITS/ML 3 ML PEN SC SCH ×4 (09:26→20:49)
[2019-11-23] MEDS: MAGNESIUM HYDROXIDE SUSP 30 ML UDC PO PRN (09:52)
--- NOTE | 2019-11-23 14:23 | Hospitalist Progress Note ---
Date of Service November 23, 2019 Assessment & Plan (1) Neurogenic claudication due to lumbar spinal stenosis: S/P day#3 for L3-L5 decompression and fusion performed by Dr. Guerra No post op complication Continue pain control Continue PT/OT Continue Incentive spirometry Hgb stable (2) Diabetes mellitus, type 2: HgbA1c 8 on 04/22/20 Continue to hold oral agents and Trulicity and utilize Lantus and NovoLog per protocol while hospitalized BS elevated due to the steroid given today Continue monitor BS (3) Fever: Possible related to post op WBC 11.29 Received steroid today that will make WBC elevated tomorrow Received Tylenol PRN If fever persist or WBC elevates, will consider to check UA and blood cx Continue monitor (4) Hypertension: BP controlled continue lisinopril/HCTZ (5) Moderate aortic stenosis: Noted on recent echo Stable (6) GERD (gastroesophageal reflux disease): Continue PPI (7) Hyperlipidemia: Continue statin (8) Self-catheterizes urinary bladder: House catheter currently in place postoperatively On chronic Macrobid for UTI suppression, continue (9) Sleep apnea: Home CPAP (10) DVT prophylaxis: Teds/SCDs as per spine orthopedics Thank you for this consultation. We will follow the patient with you during their hospital stay. You can [facility] via pager @ [phone]. Admission and Anticipated Discharge Date Admission Date: November 20, 2019 Subjective Pt was seen and examined Lying in bed with no distress Pt said that he feels ok He said that he started to have pain in his back Denies any chest pain, palpitation, dizziness, fever and SOB Physical Exam Physical Exam: General- No acute distress Head- atraumatic Eyes- PERRL, EOMI, ENT- oropharynx clear Neck- supple, no JVD Lungs- clear to auscultation Heart- regular rhythm; +systolic murmur Abdomen- normal bowel sounds, soft, nontender Extremities- no calf tenderness Neuro- alert, oriented x 3; PERRL, EOMI; no facial palsy; no dysarthria Skin- warm & dry Results & Data Results & Data ([facility]) Vital Signs (Past 12 Hours) Vital Signs Temp Pulse Resp BP Pulse Ox 11/23/19 07:31 37.2 C 82 18 113/71 94
[2019-11-23] MEDS ORDERED: INSULIN GLARGINE SOLOSTAR 100 UNITS/ML 3 ML PEN SC ONE (17:27)
[2019-11-23] MEDS: CEROVITE ADV FORMULA TAB PO SCH (20:43)
[2019-11-23] MEDS: DOCUSATE SODIUM/SENNA 50/8.6MG TAB PO SCH (20:43)
[2019-11-23] MEDS: CETIRIZINE HCL 10 MG TABLET PO SCH (20:43)
[2019-11-23] MEDS: PANTOprazole 40 MG TAB PO SCH (20:43)
[2019-11-23] MEDS: SIMVASTATIN 40 MG TAB PO SCH (20:44)
[2019-11-24] MEDS: POLYETHYLENE (MIRALAX) 17 GM PACK PO SCH ×3 (00:03→11:47)
[2019-11-24] MEDS: INSULIN GLARGINE SOLOSTAR 100 UNITS/ML 3 ML PEN SC SCH (08:21)
[2019-11-24] MEDS: INSULIN ASPART 100 UNITS/ML 3 ML PEN SC SCH ×2 (08:21→11:44)
[2019-11-24] MEDS: LISINOPRIL/HCTZ 20/25MG 1 TAB PO SCH (08:21)
--- NOTE | 2019-11-24 10:08 | Discharge Summary ---
Date of Service November 24, 2019 Admission HPI Per Admitting Provider This is a 79-year-old male who presents with worsening back and bilateral leg pain and weakness. He has had marked decline in ability to ambulate is here for surgical intervention. Principal Diagnosis Lumbar spinal stenosis with neurogenic claudication Discharge Data Allergies Allergy/AdvReac Type Severity Reaction Status Date / Time ofloxacin [From Floxin] Allergy Severe TROUBLE Verified 11/20/19 06:46 BREATHING pregabalin [From Lyrica] AdvReac Intermediate MUSCLE Verified 11/20/19 06:46 WEAKNESS Consultations 11/20/19 11:23 Consult Case Management - Discharge Planning Routine Consult Hospitalist Routine Procedures Performed Operation Date: 11/20/19 07:45 Actual Procedures p L3-L5 Decompression Fusion, Spinal Cord Monitoring(Not Applicable) - Pedro Guerra DO Ordered Studies 11/20/19 07:45 FL fluoroscopy <1hr Routine FL lumbar spine 2-3V Routine Hospital Course (1) Neurogenic claudication due to lumbar spinal stenosis: Patient went multilevel lumbar decompression fusion taken to the orthopedic floor postoperative. Postop day 1 he was up and ambulating leg symptoms markedly improved. He progressed appropriately throughout his hospital stay OSMAR drain decreasing appropriately. Pain improving. Subsequently discharged to rehab facility. Discharge orders and instructions from the chart for further review. Total Time Total Time Spent Total Time Spent (In Minutes): 30 minutes Discharge Plan Discharge Items Patient Disposition: Transfer Inpatient Rehab Fac Reason For Visit: LUMBAR SPINAL STENOSIS W/NEUROGENIC CLAUDICATION Discharge Diagnosis: Lumbar spinal stenosis with neurogenic claudication Activity: As commented below Non-emergency contact: Primary Care Provider Call non-emergency contact if: you have any medication questions Follow-up/Referrals: Aura Cowan MD [Primary Care Provider] - Diet: Regular Addtl Attending Provider Instructions: ACTIVITY RECOMMENDATIONS: SELF CARE INSTRUCTIONS AFTER THORACIC/LUMBAR FUSIONS 1. You may walk to your tolerance. It is good exercise for your legs and back. Expect some back and intermittent leg aches and pains. 2. You may perform "counter-top" level activities (make a sandwich, marcelle with a project, etc.). 3. No bending or lifting of more than 10 pounds or back twisting of any nature (roll like a log when turning in bed). 4. You may ride in a car for 20-30 minutes at a time. No driving until after your first visit with your doctor. 5. Frequent changes of position and restricting sitting to 30 minutes at a time will help limit the amount of back spasms and stiffness you may experience. 6. You may discontinue the use of ambulatory aids (cane, crutches, etc.) once your strength and confidence allow. 7. You may architect in training the shower and let water strike your incision when you arrive home at least once daily. Do not take a tub bath, sit in a hot tub or go into a swimming pool until after your first recheck in the office. SPECIAL CARE INSTRUCTIONS: VERY IMPORTANT TO READ AND REVIEW A. Your surgical incision has been closed with a cosmetic suture under the skin that will dissolve in about 6 weeks. In 14 days, you can use a pair of clean scissors and cut the suture that is left outside of the skin at the ends of your incision. 1. The small skin tapes can be removed 7 days after surgery if they have not fallen off by that point. 2. You may keep the wound open to air as much as possible to promote healing after post-op day number 5 unless told otherwise by your doctor. 3. If you think the wound looks like it is becoming infected (redness or worsening drainage) and/or you are experiencing fever, chill or worsening back pain and muscle spasms, contact the office so that we may evaluate you as soon as possible. B. Complications are uncommon, but please contact us if you have any signs or symptoms of: 1. wound infection (fever higher than 102.5 degrees F, redness, separation of wound, drainage, or increasing pain from the incision) 2. blood clots in legs (pain, swelling, redness and warmth in legs) 3. urinary tract infection (fever higher than 102.5 degrees F, burning upon urination or increased frequency of urination) 4. nerve problems (inability to walk on your toes or heels, numbness, loss of bowel or bladder control) 5. any other symptoms that concern you C. Please call the office at if you have any concerns or questions about your operation or recovery. D. No smoking! Smoking drastically decreases the chance of a solid fusion. E. Do not take any anti-inflammatory medications (Indocin, Advil, Motrin, Aspirin, Naprosyn, etc.) as these may inhibit the chance of a solid fusion. Tylenol is okay to take for pain. MANAGING PAIN AFTER SPINAL SURGERY 1. Narcotic medication is intended for short-term use and will be provided for surgical pain. Surgical pain usually lasts for a period of 4-6 weeks. Narcotic medication includes Percocet, Vicodin, Darvocet, Tylenol #3 or Lortab. 2. Longer-term pain is more appropriately treated with non-narcotic medication such as Tylenol ES. 3. Muscle spasm is not appropriately treated with narcotics. Muscle relaxers such as Soma, Flexeril or Skelaxin can be used along with Tylenol ES. 4. Remember that we all live with some "aches and pains". This is not unusual or uncommon after an injury or as we get older. a. Back pain is expected and may include muscle spasms for 4 to 6 weeks after surgery. The pain should gradually improve. If the pain worsens for no apparent reason, please contact the office. b. Intermittent leg pain may also be experienced and should not be concerned about unless it worsens for no apparent reason. If so, please contact the office. 5. We will provide appropriate medication within the normal guidelines of their prescribed use. We will also be very cautious and aware of potential abuse and extended duration of patients' medication needs. a. Pain medications are for your comfort and to assist with sleep and rest so that the tissue can heal. They are not provided in order to return to normal activity and should not be used through the day. To do so or worsening pain at night can result from ongoing tissue damage and development of tolerance to the prescribed medicine. 6. Please allow 2-3 days to process refills. Prescriptions will not be mailed but must be picked up at the office. FOLLOW UP VISIT: Keep your scheduled follow-up appointment. Any questions, please call the office at . Pending Studies at Discharge: No Stand-Alone Forms: [employer], Smoking Cessation Skilled Items Patient informed of condition?: Yes DNR: No Discharge Level of Care: Acute rehab Communicable Disease: No Discharge Prognosis: Improving Lines: None Urinary Catheter: No Medications and DC Order Prescriptions: New tramadol 50 mg tablet 50 mg PO Q6H PRN (Reason: pain, moderate) Qty: 20 RF: 0 oxycodone 5 mg tablet 5 mg PO Q6H PRN (Reason: pain, severe) Qty: 20 RF: 0 Continued cetirizine 10 mg Tablet 10 mg PO QPM RF: 0 simvastatin 40 mg Tablet 40 mg PO PM RF: 0 metformin 1,000 mg Tablet 1,000 mg PO BID RF: 0 lisinopril-hydrochlorothiazide 20-25 mg Tablet 1 tab PO QAM RF: 0 glipizide 5 mg Tablet 10 mg PO BID RF: 0 glucosamine sulfate 2KCl [Glucosamine Relief] 1,000 mg Tablet 2,000 mg PO QPM RF: 0 omega-3 fatty acids 500 mg Capsule 500 mg PO QPM RF: 0 omeprazole 20 mg Tablet,Delayed Release (Dr/Ec) 20 mg PO QPM RF: 0 Juan C Multivitamin For Men 200-175-250 mcg Tablet 1 tab PO QPM RF: 0 Trulicity 1.5 mg/0.5 mL Pen Injector 1.5 mg SUBCUT WK RF: 0 nitrofurantoin macrocrystal 100 mg capsule 100 mg PO QPM RF: 0 Discontinued celecoxib 100 mg Capsule 100 mg PO BID RF: 0 Discharge Orders: Discharge Order (Routine); Ordered 11/24/19 Ordered By: Pedro Jacobsen/Other Patient Handouts: 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
--- NOTE | 2019-11-24 11:31 | Hospitalist Progress Note ---
Date of Service November 24, 2019 Assessment & Plan (1) Neurogenic claudication due to lumbar spinal stenosis: S/P day#3 for L3-L5 decompression and fusion performed by Dr. Guerra No post op complication Continue pain control Continue PT/OT Continue Incentive spirometry Fall precaution (2) Diabetes mellitus, type 2: HgbA1c 8 on 04/22/20 Continue to hold oral agents and Trulicity and utilize Lantus and NovoLog per protocol while hospitalized BS elevated due to the steroid given today Continue monitor BS (3) Fever: Possible related to post op WBC 11.29 Received steroid yesterday that can contribute to elevate WBC if checking Received Tylenol PRN Has been afebrile for more than 24hr Continue monitor (4) Hypertension: BP controlled continue lisinopril/HCTZ (5) Moderate aortic stenosis: Noted on recent echo Stable (6) GERD (gastroesophageal reflux disease): Continue PPI (7) Hyperlipidemia: Continue statin (8) Self-catheterizes urinary bladder: House catheter currently in place postoperatively On chronic Macrobid for UTI suppression, continue (9) Sleep apnea: Home CPAP (10) DVT prophylaxis: Teds/SCDs as per spine orthopedics Thank you for this consultation. We will follow the patient with you during their hospital stay. You can reach a [facility] via pager @ [phone]. Admission and Anticipated Discharge Date Admission Date: November 20, 2019 Subjective Pt was seen and examined Sitting in chair with no distress Pt just had a moderate amount of bowel movement He has been afebrile for over 24 hrs Denies any chest pain, palpitation, dizziness, fever and SOB Physical Exam Physical Exam: General- No acute distress Head- atraumatic Eyes- PERRL, EOMI, ENT- oropharynx clear Neck- supple, no JVD Lungs- clear to auscultation Heart- regular rhythm; +systolic murmur Abdomen- normal bowel sounds, soft, nontender Extremities- no calf tenderness Neuro- alert, oriented x 3; PERRL, EOMI; no facial palsy; no dysarthria Skin- warm & dry Results & Data Results & Data ([facility]) Vital Signs (Past 12 Hours) Vital Signs Temp Pulse Resp BP BP Pulse Ox 11/24/19 10:15 36.7 C 73 16 121/72 136/82 96 11/24/19 07:32 36.7 C 73 16 136/82 96
== END 2019-11-24 12:13 | DRG 460 ==
LOC: ASU 05:58 → 3E 10:18

== ENCOUNTER 2021-05-11 06:52 | Observation (INO) ==
--- NOTE | 2021-05-08 09:40 | Anesthesiology Consultation ---
Date of Service May 08, 2021 Assessment & Plan (1) Encounter for pre-operative examination: Chart Review Chart Review: Acceptable Risk for Surgery (pending CBC DOS and review of unconfirmed EKG ) and Patient NOT seen in Pre Admission Testing - Check BSG AM DOS. Will check CBC with diff DOS (discussed with Dr. Roque- secondary to anemia). Unconfirmed EKG will need reviewed by anesthesiologist DOS Per nursing assessment 05/08/2021, patient denies any recent travel. No known Covid infection in the past 90 days. Patient is vaccinated for Covid. No known Covid positive contacts or Covid related symptoms. Preop Covid testing 05/07/21= negative Cystolitholopaxy 07/28/2020 = done under [facility] with LMA #5 I gel. History Surgery Operation Date: 05/11/21 08:40 Proposed Procedures p Transurethral Resection Prostate of Bladder Neck - Mart Cabral DO s Possible Suprapubic Tube Placement - Mart Cabral, DO Height/Weight Height: 5 ft 6 in Weight: 92.986 kg Allergies Allergy/AdvReac Type Severity Reaction Status Date / Time ofloxacin [From Floxin] Allergy Severe dyspnea Verified 05/08/21 08:58 sulfamethoxazole Allergy Severe hives, lip Verified 05/08/21 08:58 [From Bactrim] swelling trimethoprim [From Bactrim] Allergy Severe hives, lip Verified 05/08/21 08:58 swelling pregabalin [From Lyrica] AdvReac Intermediate muscle Verified 05/08/21 08:58 weakness Medications Home Medications Medication Instructions Recorded Confirmed Last Taken cetirizine 10 mg tablet 10 mg PO HS 10/31/19 05/08/21 07/27/20 19:00 dulaglutide 1.5 mg/0.5 mL 1.5 mg SUBCUT WK 10/31/19 05/08/21 07/21/20 subcutaneous pen injector (Trulicity) metformin 1,000 mg tablet 1,000 mg PO BID 10/31/19 05/08/21 07/27/20 19:00 tkzaqnxn-ima-vnfkd 200 mcg-lycop 1 tab PO QPM 10/31/19 05/08/21 2 Weeks Ago 175 mcg-lutei 250 mcg-herb 178 ~07/14/20 tablet (Juan C Multivitamin For Men) omega-3 fatty acids 500 mg capsule 500 mg PO QPM 10/31/19 05/08/21 2 Weeks Ago ~07/14/20 omeprazole 20 mg tablet,delayed 20 mg PO QAM 10/31/19 05/08/21 11/19/19 21:00 release simvastatin 40 mg tablet 40 mg PO PM 10/31/19 05/08/21 07/27/20 09:00 ascorbate calcium (vitamin C) 500 500 mg PO DAILY 12/30/20 05/08/21 Unknown mg tablet glipizide 5 mg tablet 5 mg PO BID tab 12/30/20 05/08/21 Unknown lisinopril 20 mg tablet 20 mg PO DAILY 12/30/20 05/08/21 Unknown methenamine hippurate 1 gram 1 g PO BID 12/30/20 05/08/21 Unknown tablet (Hiprex) lidocaine 5 % topical gel See Rx Instructions TOPICAL 02/25/21 05/05/21 Unknown .COMPLEX #30 g diazepam 5 mg tablet (Valium) 5 mg PO BID PRN #1 tab 05/05/21 05/05/21 Unknown ibuprofen 200 mg tablet (Advil) 200 mg PO Q6H PRN 05/05/21 05/08/21 Unknown glucosamine sulf dipot 1 cap PO QAM 05/08/21 05/08/21 Unknown chlr,msm,chond 550 mg-C 30 mg-velvet 1 mg capsule (Glucosamine Chondroitin) Past Medical History Medical History (Updated 05/08/21 @ 10:06 by Aubrie Baum PA-C) Diabetes mellitus, type 2 GERD (gastroesophageal reflux disease) Hearing deficit Hx: UTI (urinary tract infection) Recurrent UTI - follows with urology- on prophylactic abx Hyperlipidemia Hypertension Moderate aortic stenosis Moderate AV stenosis (PRANAV 1.2-1.3cm2; AV peak velocity 2.5 m/s; AV mean PG 17.9mmHg per 10/2019 echo) Neurogenic claudication due to lumbar spinal stenosis Neuropathy of both feet Prostate cancer RADIATION/SURGERY Self-catheterizes urinary bladder d/t urinary retention QID Sleep apnea NO DEVICE USED Past Family History Family History Mother , 80yo Stroke Family history of diabetes mellitus Father , 89yo Heart disease Smoker Sister Diabetes MVA (motor vehicle accident) CHF (congestive heart failure) Family history of diabetes mellitus Brother Family history of diabetes mellitus Sister Peritonitis Other No family history of adverse response to anesthesia Past Surgical History Surgical History H/O tooth extraction History of carpal tunnel release of both wrists History of lumbar fusion L3-L5 decompression/fusion: 11/20/19: Grade 2 view, MAC#4, ETT 7.5 at [facility] History of prostate surgery Hx of colonoscopy Hx of hernia repair + hydrocelectomy S/P TURP Social History Smoking Status: Never smoker Hx Alcohol Use: No Hx Substance Use: No substance use type: does not use Lab Results Anesthesia Preop Results Results Anesthesia Widget: WBC 3.57 K/uL (4.8-10.8) L 05/07/21 Hgb 9.8 g/dL (14.0-18.0) L 05/07/21 Hct 31.2 % (42-52) L 05/07/21 Plt 126 K/uL (130-400) L 05/07/21 Na 140 mmol/L (136-145) 05/07/21 K 4.3 mmol/L (3.5-5.1) 05/07/21 Cl 111 mmol/L (98-107) H 05/07/21 CO2 24 mmol/L (21-32) 05/07/21 BUN 21 mg/dl (7-18) H 05/07/21 Creat 1.45 mg/dl (0.6-1.4) H 05/07/21 Glucose Level 91 mg/dl (70-99) 05/07/21 Lab Comments: Anemia noted- last available Hgb records from 2019 showed Hgb in 11-12 range- no other recent CBCs available- will send results to PCP for continuity of care to follow up as outpatient. Surgeon's office also made aware Testing Laboratory Results 05/07/21= UA: dark yellow, cloudy, 30+ protein, large urine blood, > urine RBC Electrocardiogram Date: 05/07/21 Findings: + NSR @ (70bpm) unconfirmed (By personal visual inspection- no acute issues noted) Chest X-Ray Date: 05/07/21 Findings: + NAD and + cardiomegaly Cardiac silhouette is enlarged. The patient is slightly rotated. Mild hyperinflation with diaphragmatic flattening. No pneumothorax, pleural effusion, airspace consolidation or overt pulmonary edema. Echocardiogram Date: 11/15/19 Mild cLVH. LV systolic function normal. EF >55%. Moderate AV stenosis (peak velocity 2.5m/s. Number of cusps cannot be determined. PRANAV 1.2-1.3cm2). Grade I diastolic dysfunction. Lipomatous hypertrophy of the interatrial septum is noted. Other Testing Carotid duplex: 11/15/19: Mild bilateral atherosclerosis with no hemodynamically significant stenosis
[~2021-05-11 06:52] MED LIST changes: +LR 15ML/HR IV SCH; -SODIUM CHLORIDE 0.9% 250 ML IV PRN
[2021-05-11 07:21] LABS: Basophils # (auto) 0.01 K/uL (0-0.2); Basophils % (auto) 0.3 %; Eosinophils # (auto) 0.08 K/uL (0-0.5); Hematocrit (blood only) 31.2 % (42-52); Hemoglobin 9.8 g/dL (14.0-18.0); Immature Granulocytes # (auto) 0.04 K/uL (0.00-0.02); Lymphocytes % (auto) 15.2 %; Mean Corpuscular Hemoglobin 28.4 pg (25-34); Mean Corpuscular Volume 90.4 fL (80-100); Mean Platelet Volume 8.9 fL (7.4-10.4); Monocytes # (auto) 0.31 K/uL (0.11-0.59); Monocytes % (auto) 7.8 %; Neutrophils # (auto) 2.92 K/uL (1.4-6.5); Neutrophils % (auto) 73.7 %; Platelet Count 136 K/uL (130-400); RDW Coefficient of Variation 15.7 % (11.5-14.5); RDW Standard Deviation 52.1 fL (36.4-46.3); Red Blood Count 3.45 M/uL (4.7-6.1); White Blood Count 3.96 K/uL (4.8-10.8)
[2021-05-11] MEDS ORDERED: ONDANSETRON INJ 2 MG/ML 2 ML VIAL ONE (07:22)
[2021-05-11] MEDS ORDERED: DEXAMETHASONE SOD INJ 4 MG/ML VIAL ONE (07:22)
[2021-05-11] MEDS ORDERED: fentaNYL citrate 100 MCG/2 ML VIAL ONE (07:22)
[2021-05-11] MEDS ORDERED: PROPOFOL IV EMULSION 10 MG/ML 20 ML VIAL IV ONE (07:22)
--- NOTE | 2021-05-11 07:38 | History & Physical Bridge Note ---
Date of Service May 11, 2021 History & Physical Bridge Note I have examined the patient, reviewed the History & Physical and in the interval since the performance of the History & Physical I have noted the following changes of clinical significance: no changes noted
[2021-05-11 07:40] LABS: Mean Corpuscular Hgb Conc 31.4 g/dL (32-36)
[2021-05-11] MEDS ORDERED: LABETALOL HCL IV 5 MG/ML 20ML IV PRN (07:41)
[2021-05-11] MEDS ORDERED: ONDANSETRON INJ 2 MG/ML 2 ML VIAL IV PRN (07:41)
[2021-05-11] MEDS ORDERED: ATROPINE SULFATE 0.1 MG/ML 10ML SYR IV PRN (07:41)
[2021-05-11] MEDS ORDERED: fentaNYL citrate 100 MCG/2 ML VIAL IV PRN (07:41)
[2021-05-11] MEDS ORDERED: PHENYLEPHRINE 100MCG/ML 5ML SYR ONE (08:10)
[2021-05-11] MEDS ORDERED: EPINEPHrine INJ 1 MG/ML AMP ONE (08:23)
[2021-05-11] MEDS ORDERED: BUPIVACAINE 0.25% 30 ML VIAL ONE (08:23)
--- NOTE | 2021-05-11 09:06 | Operative Report ---
PG Post Operative Report Pre & Post Diagnosis Operation Date: 05/11/21 08:40 Pre-Op Diagnosis: Malignant Neoplasm of Prostate, Hematuria, Catheter Trauma, Neurogenic Bladder Post-Op Diagnosis: Malignant Neoplasm of Prostate, Hematuria, Catheter Trauma, Neurogenic Bladder I identified the patient and participated in the time-out.: Yes Procedure Operation Date: 05/11/21 08:40 Actual Procedures p Cystoscopy with Transurethral Resection Prostate and Incision of Bladder Neck Contracture, Urethral Dilation, and Fulguration of Bladder Lesions/Ulcers (Not Applicable) - Mart Cabral DO Surgeon Mart Cabral, II, DO Transmitter Supervisor None Estimated Blood Loss 10 Findings Consistent with Post-Op Diagnosis Severe scarring of bladder neck, bulbar urethra, and prostatic urethra. Significant adenoma at anterior prostate from 11 to 2 o'clock. Severe fissures and ulcers of the right lateral wall of bladder. Specimens Prostate adenoma. Drains 22Fr Catheter little traverse tip Anesthesia Type General Complications none Disposition Disposition: Recovery Room Indications Patient with obstruction due to scarring as well as episodes of gross hematuria. Patient intermittently catheterizes and was unable to continue to pass catheter. Risks and benefits discussed at length. Description of Procedure Patient was consented and brought back to the operating room. Patient was placed under anesthesia in the supine position and moved to the dorsal lithotomy position. Patient was prepped and draped in the regular sterile fashion. A time out was completed. A 30degree Cystoscope was placed into the bladder and the entire bladder was examined. The severe stricture in the bulbar urethra was dilated in order to allow the scope to be placed. A severe stricture in this area was the major narrowing. The UO's were identified as well as the bladder neck, trigone, dome, and the other important landmarks. The UOs were very close to the bladder neck at the 5 and 7 o'clock position. The prostatic urethra and large lobes/adenoma was assessed and the veru and bladder neck identified and area/size was assessed. Severe adenoma bulk was noted in the anterior prostate. This caused a considerable obstruction. Severe stricture was noted within the prostatic urethra. Moderate contracture at the bladder neck. Throughout the bladder multiple small areas of irritation were noted. Severe fissures, ulcerations, and irritation were noted along the right lateral wall. Majority of the areas of fissure and ulceration did have a small amount of bleeding. The resection scope was placed and the fine bipolar loop was selected. Starting at the 3 and 9 o'clock positions, a channel was created from bladder neck to the veru. This incised the significant contracture. It also incised the significant stricture within the prostatic urethra. The prostate was debulked on the lateral bal. No additional tissue was taken from the 5 to 7 o'clock position due to the location of the UOs as well as limited amount of regrowth/prostatic tissue. The 10 to 2 o'clock position was then resected taking care to monitor for any major bleeding. Resection was taken down to the capsule. This drastically debulked the opening and allowed to considerable better access to the bladder. The multiple areas of fissure and ulceration and bleeding within the bladder were inspected. The areas were fulgurated to control bleeding as well as destroyed the lesions. A significant area of approximate 4.9 cm was fulgurated. The Specimen was removed and sent for analysis. The resection bed and any bleeding areas were fulgurated/cauterized and the entire area inspected. All bleeding was controlled. The bladder was inspected a final time. The bladder was emptied and irrigated. All specimen and debris was removed. The scope was removed with the bladder partially full. A wire was left in place. A catheter was placed over the wire and balloon elevated. This was easily irrigated. The patient was cleaned, aroused from anesthesia, and transferred to the pacu in stable condition having tolerated the procedure well with no complications. I was present and participated in all aspects of the procedure. The patient will be monitored in the PACU until transferred. Plan to monitor patient overnight. We will monitor for significant bleeding or other issues. If patient continues to improve can be discharged in the morning with catheter in place. Will likely need approximately 2 to 3 weeks of catheterization in order to allow full healing. Will monitor for any major issues or problems. I attest to the content of the Intraoperative Record and any orders documented therein. Any exceptions are noted below.
[2021-05-11] MEDS ORDERED: MoRPHine SULFATE 2 MG/ML CARP IV PRN (09:19)
[2021-05-11] MEDS ORDERED: oxyCODONE/ACETAMINOPHEN 5mg/325mg TAB PO PRN (09:19)
[2021-05-11] MEDS ORDERED: PIPERACILL/TAZOBAC CONSULT ACTIVE PRN (09:24)
[2021-05-11] MEDS ORDERED: diazePAM 5 MG TABLET PO PRN (09:24)
[2021-05-11] MEDS ORDERED: PIPERACILLIN/TAZOBACTAM 2.25 GM in DEXTROSE 5% 100 ML IV SCH (09:30)
--- NOTE | 2021-05-11 09:39 | Anesthesiology Progress Note ---
Date of Service May 11, 2021 Anesthesia Post Procedure Vital Signs Vital Signs: Temp Pulse Pulse Resp BP Pulse Ox 05/11/21 09:31 66 13 125/63 99 05/11/21 09:15 64 15 99/55 L 100 05/11/21 09:06 36.4 C L 83 13 149/72 H 100 05/11/21 07:36 36.7 C 69 20 131/63 97 Transfer of Care Handoff Completed per policy Notes Mental Status: alert / awake / arousable Patient Amnestic to Procedure: Yes Nausea / Vomiting: adequately controlled Pain: adequately controlled Airway Patency, RR, SpO2: stable & adequate BP & HR: stable & adequate Hydration State: stable & adequate Anesthetic Complications: no major complications apparent
[2021-05-11] MEDS ORDERED: PIPERACILLIN/TAZOBACTAM 3.375 GM in DEXTROSE 5% 100 ML IV ONE (11:30)
[2021-05-11 11:48] LABS: Basophils # (auto) 0.01 K/uL (0-0.2); Basophils % (auto) 0.2 %; Eosinophils # (auto) 0.03 K/uL (0-0.5); Eosinophils % (auto) 0.6 %; Hematocrit (blood only) 30.9 % (42-52); Hemoglobin 9.9 g/dL (14.0-18.0); Immature Granulocytes # (auto) 0.05 K/uL (0.00-0.02); Lymphocytes # (auto) 0.41 K/uL (1.2-3.4); Lymphocytes % (auto) 8.5 %; Mean Corpuscular Hemoglobin 28.1 pg (25-34); Mean Corpuscular Volume 87.8 fL (80-100); Mean Platelet Volume 9.1 fL (7.4-10.4); Monocytes # (auto) 0.17 K/uL (0.11-0.59); Monocytes % (auto) 3.5 %; Neutrophils # (auto) 4.17 K/uL (1.4-6.5); Neutrophils % (auto) 86.2 %; Platelet Count 133 K/uL (130-400); RDW Coefficient of Variation 15.7 % (11.5-14.5); RDW Standard Deviation 50.1 fL (36.4-46.3); Red Blood Count 3.52 M/uL (4.7-6.1); White Blood Count 4.84 K/uL (4.8-10.8)
[2021-05-11 12:07] LABS: Albumin Level 3.4 gm/dl (3.4-5.0); BUN Creatinine Ratio 11.9 (10-20); Calcium 9.3 mg/dl (8.5-10.1); Creatinine Clr Calc Pharmacy 38.8 ml/min; Est GFR (African American) 45.8 ml/min; Est GFR (Non-African American) 39.5 ml/min; Potassium 4.6 mmol/L (3.5-5.1)
[2021-05-11 12:10] LABS: Bilirubin,Total 0.3 mg/dl (0.2-1); Globulin 3.4 gm/dl (2.5-4.0); Total Protein 6.8 gm/dl (6.4-8.2)
[2021-05-11] MEDS: SODIUM CHLORIDE 0.9% 1000ML 1,000 ML IV SCH (13:52)
[2021-05-11] MEDS: PIPERACILLIN/TAZOBACTAM 3.375 GM in DEXTROSE 5% 100 ML IV SCH ×2 (17:04→23:36)
--- NOTE | 2021-05-11 18:00 | Hospitalist Consultation ---
Date of Consultation May 11, 2021 Assessment & Plan (1) S/P TURP: * POD #0 * For BPH in combination with prostate CA causing urinary retention. Patient was self catheterizing and getting to the point where he was unable to pass the catheter * Recommend antibiotic prophylaxis at discretion of primary team (2) Elevated serum creatinine: * Uptrending since November 2020. May be related to obstructive uropathy secondary to #1 * Hold lisinopril for new. * Agree with gentle IV hydration. * Follow-up labs in a.m. to trend (3) Prostate cancer: * S/p radiation (4) Diabetes mellitus: * Glipizide, Metformin, and Trulicity currently on hold * Lantus while in house (at reduced dose as patient insulin naima) * NovoLog for sliding scale with correction dosing (5) Hypertension: * Lisinopril currently on hold. BP currently 129/75. We will continue to monitor. * Likely resume on POD #1 (6) Hyperlipidemia: * Takes simvastatin which has been resumed. * We will continue to follow this patient. Thank for allowing me to precipitate in his care * Plan of care to be discussed with Dr. Cabezas. Further orders as warranted. History of Present Illness Reason for Consultation: Medical management Attending Physician: Mart Cabral, II, DO History of Present Illness Mr. 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 Seen in consultation for medical management following TURP along with incision of the bladder neck contracture, urethral dilation, and fulguration of bladder lesions/ulcers. Had an uneventful perioperative course. Currently resting comfortably in his hospital bed. Denies fevers, chills, chest pain, shortness of breath, abdominal pain, nausea or vomiting. Preoperative lab data reviewed. Creatinine has been slowly uptrending since November. Currently 1.6. 1.3 in November. Urinalysis done prior to this procedure did not appear to be grossly infected. Does take methenamine twice daily. Allergies Allergy/AdvReac Type Severity Reaction Status Date / Time ofloxacin [From Floxin] Allergy Severe dyspnea Verified 05/11/21 07:18 sulfamethoxazole Allergy Severe hives, lip Verified 05/11/21 07:18 [From Bactrim] swelling trimethoprim [From Bactrim] Allergy Severe hives, lip Verified 05/11/21 07:18 swelling pregabalin [From Lyrica] AdvReac Intermediate muscle Verified 05/11/21 07:18 weakness Home Medications Medication Instructions Recorded Confirmed Type cetirizine 10 mg tablet 10 mg PO HS 10/31/19 05/11/21 History dulaglutide 1.5 mg/0.5 mL 1.5 mg SUBCUT WK 10/31/19 05/11/21 History subcutaneous pen injector (Trulicity) metformin 1,000 mg tablet 1,000 mg PO BID 10/31/19 05/11/21 History elnhkxql-tub-fpevq 200 mcg-lycop 1 tab PO QPM 10/31/19 05/11/21 History 175 mcg-lutei 250 mcg-herb 178 tablet (Juan C Multivitamin For Men) omega-3 fatty acids 500 mg capsule 500 mg PO QPM 10/31/19 05/11/21 History omeprazole 20 mg tablet,delayed 20 mg PO QAM 10/31/19 05/11/21 History release simvastatin 40 mg tablet 40 mg PO PM 10/31/19 05/11/21 History ascorbate calcium (vitamin C) 500 500 mg PO DAILY 12/30/20 05/11/21 History mg tablet glipizide 5 mg tablet 5 mg PO BID tab 12/30/20 05/11/21 History lisinopril 20 mg tablet 20 mg PO DAILY 12/30/20 05/11/21 History methenamine hippurate 1 gram 1 g PO BID 12/30/20 05/11/21 History tablet (Hiprex) lidocaine 5 % topical gel See Rx Instructions TOPICAL 02/25/21 05/11/21 Rx .COMPLEX #30 g diazepam 5 mg tablet (Valium) 5 mg PO BID PRN #1 tab 05/05/21 05/11/21 Rx ibuprofen 200 mg tablet (Advil) 200 mg PO Q6H PRN 05/05/21 05/11/21 History amoxicillin 500 mg-potassium 1 tab PO BID 7 Days #14 tab 05/08/21 05/11/21 Rx clavulanate 125 mg tablet (Augmentin) glucosamine sulf dipot 1 cap PO QAM 05/08/21 05/11/21 History chlr,msm,chond 550 mg-C 30 mg-velvet 1 mg capsule (Glucosamine Chondroitin) cephalexin 500 mg capsule 500 mg PO BID 10 Days #20 cap 05/11/21 Rx oxybutynin chloride 5 mg tablet 5 mg PO Q8H PRN #20 tab 05/11/21 Rx oxycodone-acetaminophen 7.5 mg-325 1 tab PO Q8H PRN #7 tab 05/11/21 Rx mg tablet (Percocet) Patient History Medical History Diabetes mellitus, type 2 GERD (gastroesophageal reflux disease) Hearing deficit Hx: UTI (urinary tract infection) Recurrent UTI - follows with urology- on prophylactic abx Hyperlipidemia Hypertension Moderate aortic stenosis Moderate AV stenosis (PRANAV 1.2-1.3cm2; AV peak velocity 2.5 m/s; AV mean PG 17.9mmHg per 10/2019 echo) Neurogenic claudication due to lumbar spinal stenosis Neuropathy of both feet Prostate cancer RADIATION/SURGERY Self-catheterizes urinary bladder d/t urinary retention QID Sleep apnea NO DEVICE USED Surgical History H/O tooth extraction History of carpal tunnel release of both wrists History of lumbar fusion L3-L5 decompression/fusion: 11/20/19: Grade 2 view, MAC#4, ETT 7.5 at [facility] History of prostate surgery Hx of colonoscopy Hx of hernia repair + hydrocelectomy S/P TURP Family History Mother , 80yo Stroke Family history of diabetes mellitus Father , 89yo Heart disease Smoker Sister Diabetes MVA (motor vehicle accident) CHF (congestive heart failure) Family history of diabetes mellitus Brother Family history of diabetes mellitus Sister Peritonitis Other No family history of adverse response to anesthesia Social History Smoking Status: Never smoker Second Hand Exposure: Yes ( CHILD); Hx Alcohol Use: No Hx Substance Use: No Preferred Language: Spanish Communication Ability: Effective Visual Impairment: No Limitations Hearing Ability: Normal Track Maintainer Required: No Beliefs That Will Affect Care: None marital status: Single Current Living Situation: Alone 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 Physical Exam Physical Exam: General: Resting comfortably in his hospital bed. Talkative. NAD. Neck: No JVD. Negative hepatojugular reflex Cardiac: RRR with 2/6 to 3/6 MOE heard best at the right sternal border (patient reports not a new finding) Lungs: CTA without W/R/R Abdomen: Normoactive X4. Abdomen distended but baseline per patient. Nontender in all quadrants. House catheter noted at bedside Extremities: No peripheral clubbing cyanosis or edema Neuro: A&O X4 cranial nerves II through XII are grossly intact no focal neuro deficits Skin: No obvious skin lesions or rashes Results & Data Results & Data ([facility]) Vital Signs (Past 12 Hours) Vital Signs Temp Pulse Pulse Pulse Resp BP Pulse Ox 05/11/21 15:20 37.1 C 66 20 129/75 94 05/11/21 14:51 70 05/11/21 14:15 62 05/11/21 14:14 05/11/21 13:35 36.7 C 66 18 142/77 H 94 05/11/21 13:00 68 17 136/86 97 05/11/21 12:00 62 18 137/81 98 05/11/21 11:30 61 20 143/78 H 97 05/11/21 11:00 57 L 14 140/71 97 05/11/21 10:45 58 L 14 138/66 99 05/11/21 10:30 53 L 20 136/67 100 05/11/21 10:15 54 L 15 125/68 100 05/11/21 10:00 57 L 12 121/79 95 05/11/21 09:45 36.3 C L 61 12 138/71 93 05/11/21 09:35 61 15 138/61 93 05/11/21 09:25 66 13 125/63 99 05/11/21 09:15 64 15 99/55 L 100 05/11/21 09:06 36.4 C L 83 13 149/72 H 100 05/11/21 07:36 36.7 C 69 20 131/63 97 Pulse Ox 05/11/21 15:20 05/11/21 14:51 05/11/21 14:15 05/11/21 14:14 94 05/11/21 13:35 05/11/21 13:00 05/11/21 12:00 05/11/21 11:30 05/11/21 11:00 05/11/21 10:45 05/11/21 10:30 05/11/21 10:15 05/11/21 10:00 05/11/21 09:45 05/11/21 09:35 05/11/21 09:25 05/11/21 09:15 05/11/21 09:06 05/11/21 07:36 Laboratory Results 05/11/21 11:24 05/11/21 11:24 Covid rapid antigen: Negative Urinalysis: Not grossly infected PG Care Time/CCT Total # of Minutes Spent Total Time Spent with Patient: Total time spent is greater than 50% in coordination of care (as documented) at patient's floor/unit and/or counseling patient: [place] [address] Inpt Consult Level 5 Patient Type New History Comprehensive Exam Comprehensive Diagnoses S/P TURP Z90.79 Prostate cancer C61 Diabetes mellitus E11.9 Hypertension I10 Hyperlipidemia E78.5 Elevated serum creatinine R79.89
[2021-05-11] MEDS: DOCUSATE SODIUM 100 MG CAP PO SCH (20:14)
[2021-05-11] MEDS: INSULIN ASPART 100 UNITS/ML 3 ML PEN SC SCH (20:59)
[2021-05-11] MEDS ORDERED: SIMVASTATIN 40 MG TAB PO SCH (21:00)
[2021-05-11] MEDS ORDERED: INSULIN GLARGINE SOLOSTAR 100 UNITS/ML 3 ML PEN SC SCH (21:00)
[2021-05-11] MEDS ORDERED: CETIRIZINE HCL 10 MG TABLET PO SCH (21:00)
[2021-05-11] MEDS ORDERED: Nursing to Pharmacy Communication SCH (23:45)
[2021-05-12] MEDS: SODIUM CHLORIDE 0.9% 1000ML 1,000 ML IV SCH (03:10)
[2021-05-12 07:02] LABS: BUN Creatinine Ratio 10.7 (10-20); Calcium 8.7 mg/dl (8.5-10.1); Creatinine Clr Calc Pharmacy 40.7 ml/min; Est GFR (African American) 47.9 ml/min; Est GFR (Non-African American) 41.4 ml/min; Magnesium 1.5 mg/dl (1.8-2.4); Potassium 4.2 mmol/L (3.5-5.1)
[2021-05-12] MEDS: MAGNESIUM SULFATE / D5W 1 GM/100 ML BAG IV SCH ×2 (07:41→09:42)
--- NOTE | 2021-05-12 07:53 | Hospitalist Progress Note ---
Date of Service May 12, 2021 Assessment & Plan (1) S/P TURP: Plan: - s/p TURP 05/11 - For BPH in combination with prostate CA causing urinary retention. Patient was self catheterizing and getting to the point where he was unable to pass the catheter - Antibiotic prophylaxis at discretion of primary team (2) Elevated serum creatinine: Plan: [place] likely post renal improving following treatment with TURP as noted - baseline Cr ~1.3 - Cr downtrending 1.6 to 1.5 today - Continue to hold lisinopril, recommend resuming once creatinine normalizes - BMp daily (3) Prostate cancer: Plan: * S/p radiation (4) Diabetes mellitus: Plan: * Glipizide, Metformin, and Trulicity currently on hold * Lantus while in house (at reduced dose as patient insulin naima) * NovoLog for sliding scale with correction dosing (5) Hypertension: Plan: * Lisinopril currently on hold. BP adequate. We will continue to monitor. - Resume lisinopril once Cr improves (6) Hyperlipidemia: Plan: - Continue simvastatin Admission and Anticipated Discharge Date Admission Date: May 11, 2021 Subjective Patient seen at bedside this morning. He reports he feels well," much more comfortable than I have before ". Denies shortness of breath, difficulty breathing, chest pain, chest pressure, fever, chills, lightheadedness, dizziness, or other symptoms today. Overall feels well with no questions or concerns. Review of Systems Review of Systems: 10 point review of systems negative except as noted in HPI Physical Exam Physical Exam: General: A&Ox3. NAD. Cooperative. HEENT: Atraumatic, normocephalic. Pulm: CTAB A&P. -wheezes, -rales, -rhonchi. Symmetrical chest rise. No increase work of breathing. No respiratory distress. Cardiac: RRR, -mrg. Radial pulses intact and symmetrical. Abdominal: Nontender, nondistended, soft. BS present. : House draining clear yellow urine Results & Data Results & Data ([facility]) Vital Signs (Past 12 Hours) Vital Signs Temp Pulse Pulse Resp BP Pulse Ox 05/12/21 07:00 51 L 05/12/21 03:59 36.6 C 55 L 18 136/75 96 05/11/21 23:51 36.7 C 67 18 120/60 96 05/11/21 22:20 59 L 05/11/21 20:06 37.0 C 69 18 129/71 94 PG Care Time/CCT Total # of Minutes Spent Total Time Spent with Patient: Total time spent is greater than 50% in coordination of care (as documented) at patient's floor/unit and/or counseling patient: Coding Level of Care Code 82973 Subseq Hosp Care Lvl 3 Diagnoses S/P TURP Z90.79 Elevated serum creatinine R79.89 Prostate cancer C61 Diabetes mellitus E11.9 Hypertension I10 Hyperlipidemia E78.5
[2021-05-12] MEDS: PIPERACILLIN/TAZOBACTAM 3.375 GM in DEXTROSE 5% 100 ML IV SCH ×2 (08:02→16:30)
[2021-05-12] MEDS: INSULIN ASPART 100 UNITS/ML 3 ML PEN SC SCH ×3 (08:55→16:31)
[2021-05-12] MEDS: DOCUSATE SODIUM 100 MG CAP PO SCH (09:00)
[2021-05-12] MEDS ORDERED: PANTOprazole 40 MG TAB PO SCH (09:00)
--- NOTE | 2021-05-12 09:00 | Urology Progress Note ---
Date of Service May 12, 2021 Assessment & Plan (1) Enlarged prostate with lower urinary tract symptoms (LUTS): (2) Retention of urine: (3) Prostate cancer: (4) S/P TURP: Plan: 81 yo M POD #1 s/p Cystoscopy with Transurethral Resection Prostate and Incision of Bladder Neck Contracture, Urethral Dilation, and Fulguration of Bladder Lesions/Ulcers - Doing well, progressing as expected - Afebrile, lab work reviewed - creatinine 1.55, WBC 4.84, Hgb 9.9 (05/11) - Tolerating PO diet - House catheter intact, patent and draining clear yellow urine - Maintain House catheter - Anticipate home later today with House catheter presuming he continues to progress as expected - Discharge with course of PO antibiotics, prn Oxybutynin and prn pain medication - Expected clinical course reviewed, all questions answered - Will arrange outpatient follow-up with our service for voiding trial and post op visit Admission and Anticipated Discharge Date Admission Date: May 11, 2021 Subjective 81 yo M POD#1 s/p Cystoscopy with Transurethral Resection Prostate and Incision of Bladder Neck Contracture, Urethral Dilation, and Fulguration of Bladder Lesions/Ulcers. Patient seen and examined at bedside this AM. He is awake, alert and sitting up at the side of the bed. No acute issues overnight. No flank, abdominal or suprapubic pain. He is not utilizing any pain medication. House catheter intact, patent and draining clear yellow urine. Tolerating PO diet, no nausea or vomiting. Reports +flatus, small BM this morning. No fever or chills. He feels ready for discharge later today. Review of Systems Constitutional: as per Subjective / HPI Respiratory: no dyspnea Cardiovascular: no chest pain Gastrointestinal: as per Subjective / HPI Genitourinary: + as per Subjective / HPI Neurologic: no dizziness Physical Exam Constitutional: well developed and well nourished; no acute distress and not ill appearing Respiratory: normal respiratory effort and able to speak in complete sentences; no respiratory distress and no labored breathing Cardiovascular: Extremities: no pedal edema Gastrointestinal (Abdomen): Inspection/Auscultation: abdomen normal to inspection; abdomen not distended Percussion/Palpation: abdomen soft; abdomen nontender and no guarding Musculoskeletal: Head/Neck/Chest: normocephalic and head atraumatic Extremities: extremities normal to inspection Skin: no rashes, warm and dry Neurologic: moves all extremities and awake Psychiatric: Orientation: alert and oriented x 3 Genitourinary: no CVA tenderness House catheter intact, patent and draining clear yellow urine. Results & Data ([facility]) Vital Signs (Past 12 Hours) Vital Signs Temp Pulse Pulse Resp BP Pulse Ox 05/12/21 08:20 36.7 C 74 16 129/77 94 05/12/21 07:00 51 L 05/12/21 03:59 36.6 C 55 L 18 136/75 96 05/11/21 23:51 36.7 C 67 18 120/60 96 05/11/21 22:20 59 L PG Care Time/CCT Total # of Minutes Spent Total Time Spent with Patient: Total time spent is greater than 50% in coordination of care (as documented) at patient's floor/unit and/or counseling patient: Coding Level of Care Code 22939 Subseq Hosp Care Lvl 2 Diagnoses Enlarged prostate with lower urinary tract symptoms (LUTS) N40.1 Retention of urine R33.9 Prostate cancer C61 S/P TURP Z90.79
[2021-05-12 11:35] VITALS: TEMP 97.7; O2SAT 95
[2021-05-12 13:42] VITALS: BP 129/75
[2021-05-12 15:29] VITALS: PULSE 54
--- NOTE | 2021-05-13 12:38 | Discharge Summary ---
Date of Service May 13, 2021 Admission HPI Per Admitting Provider See H&P Admission Exam Per Admitting Provider See H&P Principal Diagnosis BPH with obstruction Discharge Exam General: Alert in no acute distress. HEENT: Normocephalic Atraumatic. Inspection normal. Psychologic: Normal affect. Skin: [place] and Dry. No rashes or visible lesions. Abdomen: Soft Non-distended. No rebound or guarding. Discharge Data Allergies Allergy/AdvReac Type Severity Reaction Status Date / Time ofloxacin [From Floxin] Allergy Severe dyspnea Verified 05/11/21 07:18 sulfamethoxazole Allergy Severe hives, lip Verified 05/11/21 07:18 [From Bactrim] swelling trimethoprim [From Bactrim] Allergy Severe hives, lip Verified 05/11/21 07:18 swelling pregabalin [From Lyrica] AdvReac Intermediate muscle Verified 05/11/21 07:18 weakness Consultations 05/11/21 09:26 Consult Hospitalist Routine Procedures Performed Operation Date: 05/11/21 08:40 Actual Procedures p Transurethral Resection Prostate and Incision of Bladder Neck Contracture, (Not Applicable) - Mart Cabral DO s Cysto Urethral Dilation, Fulguration of Bladder Lesions(Not Applicable) - Mart Cabral, Hospital Course (1) Enlarged prostate with lower urinary tract symptoms (LUTS): (2) Retention of urine: (3) Prostate cancer: (4) S/P TURP: 81 yo M POD #1 s/p Cystoscopy with Transurethral Resection Prostate and Incision of Bladder Neck Contracture, Urethral Dilation, and Fulguration of Bladder Lesions/Ulcers - Doing well, progressing as expected - Afebrile, lab work reviewed - creatinine 1.55, WBC 4.84, Hgb 9.9 (05/11) - Tolerating PO diet - House catheter intact, patent and draining clear yellow urine - Maintain House catheter - Anticipate home later today with House catheter presuming he continues to progress as expected - Discharge with course of PO antibiotics, prn Oxybutynin and prn pain medication - Expected clinical course reviewed, all questions answered - Will arrange outpatient follow-up with our service for voiding trial and post op visit Total Time Total Time Spent Total Time Spent (In Minutes): 10 minutes Total Time Includes: Examination of the Patient, Discharge Planning, Medication Reconciliation and Communication With Other Providers Discharge Plan Discharge Items Patient Disposition: Home - Self-Care Reason For Visit: Malignant Neoplasm of Prostate, Urinary Tract Infe Discharge Diagnosis: Same Activity: Per Instructions section Lifting: No more than 25 pounds Bathing Comment: Okay to shower after discharge, no tub bath or soaking Sexual Activity: Wait until after follow-up appointment Exercise/Sports: Wait until after follow-up appointment Driving/Machine Use: Do not drive while taking prescription pain medication Non-emergency contact: Surgeon Call non-emergency contact if: you have any medication questions, your symptoms worsen, your pain is not controlled, your pain is worsening, your pain is unusual for you, your pain is concerning for you, you have a fever and your temperature is above 101.5 Follow-up/Referrals: Mart Cabral DO [Physician] - 06/02/21 10:00 am Aura Cowan MD [Primary Care Provider] - [facility],Nurse [FAKE FOR SCHEDULES] - 06/02/21 9:40 am Diet: Regular Addtl Attending Provider Instructions: May have blood in urine. May have discomfort. Home with catheter care instructions per nursing. Please take all medications as prescribed and keep all follow-ups as scheduled. Please call our office at [phone] with any questions, concerns or need to reschedule appointments for any reason. We are happy to assist you. Take antibiotic as directed. Hold methenamine while taking your treatment antibiotic. You can resume your methenamine after completing antibiotic. Tips for your recovery at home: Dont be alarmed by brownish or reddish blood or clots in your urine. This is a result of the procedure. This may occur off and on for weeks to months after the procedure but should continue to improve. Drink plenty of fluids during the day (enough to keep your urine very light colored). This will help keep a healthy flow of urine. Do not lift >25 lbs until your followup Avoid constipation. Please use a stool softener (Colace) for the first two weeks after your procedure Be sure to finish the antibiotics as prescribed. If you go home with a catheter, please wash tubing where it enters your body twice daily with mild soap (Dove or Dial). Once your catheter is removed, expect some blood in your urine and some burning when you urinate. You should have an appointment to have this removed, if you do not please call our office to arrange. Pending Studies at Discharge: Yes Studies:: Pathology Stand-Alone Forms: My [facility] Medications and DC Order Prescriptions: New cephalexin 500 mg capsule 500 mg PO BID 10 Days Qty: 20 RF: 0 oxycodone-acetaminophen [Percocet] 7.5-325 mg tablet 1 tab PO Q8H PRN (Reason: pain) Qty: 7 RF: 0 oxybutynin chloride 5 mg tablet 5 mg PO Q8H PRN (Reason: bladder spasms) Qty: 20 RF: 0 Continued ascorbate calcium (vitamin C) 500 mg tablet 500 mg PO DAILY RF: 0 lisinopril 20 mg tablet 20 mg PO DAILY RF: 0 methenamine hippurate [Hiprex] 1 gram tablet 1 g PO BID RF: 0 lidocaine 5 % gel See Rx Instructions topical .COMPLEX Qty: 30 RF: 2 ibuprofen [Advil] 200 mg tablet 200 mg PO Q6H PRN (Reason: Pain) RF: 0 diazepam [Valium] 5 mg tablet 5 mg PO BID PRN (Reason: anxiety) Qty: 1 RF: 0 amoxicillin-pot clavulanate [Augmentin] 500-125 mg tablet 1 tab PO BID 7 Days Qty: 14 RF: 0 cetirizine 10 mg Tablet 10 mg PO HS RF: 0 simvastatin 40 mg Tablet 40 mg PO PM RF: 0 metformin 1,000 mg Tablet 1,000 mg PO BID RF: 0 omega-3 fatty acids 500 mg Capsule 500 mg PO QPM RF: 0 omeprazole 20 mg Tablet,Delayed Release (Dr/Ec) 20 mg PO QAM RF: 0 Juan C Multivitamin For Men 200-175-250 mcg Tablet 1 tab PO QPM RF: 0 Trulicity 1.5 mg/0.5 mL Pen Injector 1.5 mg SUBCUT WK RF: 0 glipizide 5 mg tablet 5 mg PO BID RF: 0 Glucosamine Chondroitin 550-30-1 mg Capsule 1 cap PO QAM RF: 0 Discharge Orders: Discharge Order (Routine); Ordered 05/12/21 Ordered By: Thu Soler Admission Data Admit Date/Time: 05/11/21 09:19 Attending Provider: Rudi Patricia Admit Provider: Mart Cabral Primary Care Provider: Aura Cowan Other Providers: Farhad Whitley ; Iris Rene ; Tre Cm ; Dick Pradhan ; Raulito Triplett ; Saul Marquez ; Jaime Cabezas ; Jerome Elizondo ; Vicky Joe ; Arelis Waterman ; Raulito Shaikh ; Devi Mayers ; Sandy Cowan ; Farhan Brown ; Jesus Menon ; Troy Jackson ; Iris Bonds ; Paxton Diehl ; Cezar Cabrera ; En Walls ; Tre Infante ; Miller Dykes ; Saima Lopez ; Jhonny Warren ; Devi Arriaza ; Rudi Patricia ; Shakir Cardoza ; Valentin Porter Other Interventions: Discharge Summary Assessment (RN) Last Done: 05/12/21 13:41 Coding Level of Care Code D/C DAY MANAGEMENT <30 MINS Diagnoses Enlarged prostate with lower urinary tract symptoms (LUTS) N40.1 Retention of urine R33.9 Prostate cancer C61 S/P TURP Z90.79
== END 2021-05-12 16:35 | disposition home or self-care (01) ==
LOC: PACUINP 06:52 → ASU 06:52 → SUATTDRO 09:19 → 2N 13:52